=== PATIENT | male | born 1990 ===

== ENCOUNTER 2020-01-24 14:20 | Outpatient (REF) | payer MEDICAID, SELFPAY | END 2020-01-24 14:21 | disposition home or self-care (01) | LOC: HO.LAB 14:20 | PROVIDERS: Visit Provider Internal Medicine | DX: Z20.828 Contact with and (suspected) exposure to other viral communicable diseases (principal) | CPT/HCPCS: C9803; U0003 ==

== ENCOUNTER 2020-02-10 08:32 | Emergency (ER) | payer MEDICAID, SELFPAY ==
[2020-02-10 08:39] VITALS: BP 129/89; PULSE 100; RESP 16; TEMP 36.8; O2SAT 96; BMI 36.9
--- NOTE | 2020-02-10 08:57 | ED_ITS ---
HPI - Fever General Chief Complaint: Upper Respiratory Symptoms Stated Complaint: FEVER Time Seen by Provider: 02/10/20 08:41 Source: patient Mode of arrival: ambulatory Limitations: no limitations History of Present Illness HPI Narrative: 29-year-old male who presents emergency department for evaluation of fever, chills, and cough. The patient states that he got sick yesterday. He states that he developed hot and cold sensations with shaking chills. He checked his temperature yesterday in his T-max was 100.4? F. the patient states that has a cough which is nonproductive. He denied chest pain, shortness of breath or dyspnea on exertion. The patient's [id number] was visiting approximately 2 weeks prior and he tested positive for COVID-19. The patient was tested for COVID-19 on January 24, 2020 and was COVID negative. 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 He states that he was quarantine at home due to his exposure and return to work on , 2 days prior to evaluation. The patient's past medical history is negative. He does not smoke, does not drink alcohol and does not use drugs. MD elicited complaint: fever Onset (ago): day(s) (2) Context: sick contacts ([id number] COVID positive) Exacerbating factors: nothing Relieving factors: nothing Associated symptoms: chills and cough (Nonproductive) Treatments prior to arrival fever: none Related Data Allergies Allergy/AdvReac Type Severity Reaction Status Date / Time animal dander [PET DANDER] Allergy Mild SNEEZING Unverified 11/23/19 19:00 SEASONAL ALLERGIES Allergy Mild RUNNY NOSE Uncoded 11/23/19 19:00 Review of Systems Review of Systems: Yes all other systems are reviewed and are negative Constitutional: Constitutional: Reports as per HPI Eyes: Eyes: Reports as per HPI ENT: Reports as per HPI Cardiovascular: Cardiovascular: Reports as per HPI Respiratory: Respiratory: Reports as per HPI Gastrointestinal: Gastrointestinal: Reports as per HPI Genitourinary: Genitourinary: Reports as per HPI Musculoskeletal: Musculoskeletal: Reports as per HPI Integumentary/Breasts: Skin/Breast: Reports as per HPI Neurologic: Reports as per HPI and Reports Abnormal speech present Psychiatric: Psychiatric: Reports as per HPI Allergic/Immunologic: Allergic/Immunologic: Reports as per HPI [facility] Social History Social History Advance Directives: No Advance Directives Information Provided: No Physical Exam Vital Signs: Vital Signs: Last Vital Signs Temp 98.2 F 02/10/20 08:39 Pulse 100 02/10/20 08:39 Resp 16 02/10/20 08:39 BP 129/89 02/10/20 08:39 Pulse Ox 96 02/10/20 08:39 Body Mass Index 36.9 Const: General: cooperative, no acute distress, alert and awake Orientation/consciousness: oriented to person and oriented to place Limitations: no limitations HENMT: Head: Yes normal to inspection, Yes normocephalic and Yes atraumatic Ears: external ears normal General nose exam: Normal external nose present Face and sinus: Yes normal facial exam Mouth: Normal oral and palatal mucosa present Throat: Yes posterior oropharynx normal Eyes: General: appearance normal, both eyes and all related structures Periorbital: periorbital findings normal Eyelids: Yes eyelids normal Conjunctivae: conjunctivae normal Sclerae: sclerae normal Corneas: corneas normal Pupils: Equal, round and reactive pupils present Direct Ophthalmoscopy: normal light reflex Neck: Neck: Yes normal visual inspection and Yes supple Lymphatic: no lymphadenopathy noted Chest: Chest palpation & inspection: normal inspection of the chest and normal palpation of entire chest wall Resp: Effort & Inspection: normal respiratory effort, abnormal respiratory pattern, no audible wheezes and no respiratory distress Auscultation: clear to auscultation bilaterally, no crackles, no rales, no rhonchi and no wheezes Cardio: Rate: regular rate Rhythm: regular rhythm Heart sounds: S1 normal heart sound present, S2 normal heart sound present and no murmurs GI: Inspection: No distended Palpation (GI): Soft to palpation, nontender, no guarding and No hepatosplenomegaly present Auscultation: normal bowel sounds : General: Yes no CVA tenderness Back/Spine/Pelvis: Back: no CVA tenderness Skin: General skin exam: no rashes or lesions noted Lesions: no lesions Rashes: no rashes Wounds: no wounds Neuro: General: oriented to person and oriented to place Cranial nerves: Yes CN's II-XII intact bilaterally and Yes Equal, round and reactive pupils present Cognition (Neuro): normal cognition Speech: Abnormal speech present Motor exam (neuro): 5/5 motor strength present throughout Extrem: General: Yes normal to inspection, Yes full ROM, Yes no pedal edema and Yes no calf tenderness Psych: Appearance: grossly normal Mental Status: mental status grossly normal Speech and movement: Clear speech present Affect: normal affect Thought process: Normal thought process present Course Course Course Narrative: 29-year-old male who presents emergency department for evaluation fever, chills and a dry nonproductive cough x2 days. The patient had a known COVID-19 exposure but also had a negative COVID-19 test on January 24, 2020. Patient's physical examination revealed normal O2 saturation 96% on room air, he was afebrile here in the emergency department, he did have a slightly elevated pulse of 100 beats per minute with a normal respiratory rate of 16. My impression is that the patient has an upper respiratory tract infection. Given his COVID-19 exposure and given the fact that he is a security controls assessor at the [employer], I will retest the patient for COVID-19 and advised the patient to quarantine at home until he gets the result. I did discuss the treatment of a viral illnesses, COVID-19 and URIs with the patient. He was advised to take Tylenol and ibuprofen and to follow up with his doctor for re-evaluation in 2 days. He is advised to return emergency department if his symptoms get worse or if he develops any new symptoms that are concerning to him. Discharge Plan Discharge Clinical Impression: Suspected COVID-19 virus infection Upper respiratory infection Qualifiers: URI type: unspecified viral URI Qualified Code(s): J06.9 - Acute upper respiratory infection, unspecified Patient Disposition: Home, Self-Care Instructions: Upper Respiratory Infection (ED), COVID-19 (Coronavirus Disease 2019) (ED) Additional Instructions: His symptoms are consistent with a viral infection, upper respiratory tract infection. We did check you for COVID-19. This should come back in 2-4 days in the hospital should contact me with this result. You need to quarantine at home until you know this result. Take ibuprofen 200 mg pills, 3 pills every 6 hours as needed for pain or fever. Take Tylenol 500 mg pills, 2 pills every 4-6 hours as needed for pain or fever. Follow-up with your doctor for re-evaluation in 2 days. Please return to the emergency department if her symptoms get worse or if you develop any new symptoms that are concerning to you. Referrals: [address],[facility] [Primary Care Provider] - 2 days
== END 2020-02-10 09:53 | disposition home or self-care (01) ==
PROVIDERS: Emergency Provider Emergency Medicine Emergency Medical Services
DX: J06.9 Acute upper respiratory infection, unspecified (principal); Z20.828 Contact with and (suspected) exposure to other viral communicable diseases
CPT/HCPCS: 99283; U0003

== ENCOUNTER 2020-02-26 14:10 | Outpatient (REF) | payer MEDICAID, SELFPAY | END 2020-02-26 14:11 | disposition home or self-care (01) | LOC: HO.LAB 14:10 | PROVIDERS: Visit Provider Internal Medicine | DX: Z20.828 Contact with and (suspected) exposure to other viral communicable diseases (principal) | CPT/HCPCS: C9803; U0003 ==

== ENCOUNTER 2020-04-18 07:47 | Outpatient (REF) | payer MEDICAID, SELFPAY ==
--- NOTE | 2020-04-18 | PFT_ITS ---
INDICATIONS: Asthma. SPIROMETRY: The FEV1 to FVC of 86% with an FEV1 of 3.53 L, which is 84% predicted with an FVC of 4.1 L, which is 81% predicted. No significant response to bronchodilators noted. The maximal voluntary ventilation 86% of predicted. LUNG VOLUMES: Total lung capacity 84% of predicted with a residual volume 87% of predicted, and an expiratory reserve volume of 30% predicted likely secondary to an elevated BMI. DIFFUSION CAPACITY: DLCO 105% of predicted. COMPARISONS: None available. INTERPRETATION: No obstructive nor restrictive ventilatory defects identified. No significant response to bronchodilators noted. However, the patient does have some evidence of small airways disease. Lung volumes are low-normal and has a decrease in the expiratory reserve volume secondary to an elevated BMI. Diffusion capacity is within normal limits. If asthma is in the differential, a methacholine challenge may be helpful in assessing for hyperreactive airways. Otherwise, clinical correlation warranted. MD TAMIA Churchill/[facility] / [id number]
== END 2020-04-18 07:48 | disposition home or self-care (01) ==
LOC: HO.RESP 07:47
PROVIDERS: Visit Provider Internal Medicine
DX: J45.31 Mild persistent asthma with (acute) exacerbation (principal)
CPT/HCPCS: 94060; 94727; 94729

== ENCOUNTER 2023-01-27 09:42 | Outpatient (REF) | payer MEDICAID, SELFPAY ==
[2023-01-27 12:19] LABS: Estimated Average Glucose 123 mg/dL; Hemoglobin A1c % 5.9 % (<6.0)
[2023-01-27 12:26] LABS: Anion Gap 12 (12-20); Blood Urea Nitrogen 13 mg/dL (9-16); Calcium 9.8 mg/dL (8.4-10.2); Carbon Dioxide 28 mmol/L (22-29); Chloride 103 mmol/L (96-108); Estimated Glomerular Filt Rate > 60; Glucose Random 96 mg/dL (60-115); Potassium 4.4 mmol/L (3.3-5.1); Sodium 139 mmol/L (135-145)
== END 2023-01-27 09:43 | disposition home or self-care (01) ==
LOC: HO.HHCL 09:42
PROVIDERS: Visit Provider Emergency Medicine
DX: E11.9 Type 2 diabetes mellitus without complications (principal)
CPT/HCPCS: 36415; 80048; 83036

== ENCOUNTER 2023-07-05 08:42 | Emergency (ER) | payer MEDICAID, SELFPAY ==
--- NOTE | ~2023-07-05 | XR_ITS ---
EXAMINATION: XR CHEST CLINICAL INFORMATION: Cough rib pain COMPARISON: Chest radiograph from 11/04/2019 TECHNIQUE: 2 views of the chest were obtained. FINDINGS: No focal consolidation. No pneumothorax. Trachea is midline. Cardiac mediastinal silhouette is not enlarged. No large pleural effusion. Osseous structures are intact. Soft tissues are unremarkable. XR/XR chest 2V IMPRESSION: No acute cardiopulmonary process.
[2023-07-05 08:46] VITALS: BP 149/89; PULSE 99; RESP 18; TEMP 36.6; O2SAT 98; BMI 38.5
--- NOTE | 2023-07-05 08:59 | ED.GENADULT ---
HPI - General Adult General Chief complaint: Upper Respiratory Symptoms Stated complaint: Cough/Rib pain/fever Time Seen by Provider: 07/05/23 08:56 Source: patient Mode of arrival: ambulatory Limitations: no limitations History of Present Illness HPI narrative: Patient is a 33-year-old male with history of asthma presenting to the emergency department with complaint of nonproductive cough, nasal congestion, fevers body aches and sore throat since Wednesday. Son is getting over influenza. States that he has been using his inhalers and albuterol at home. Denies any chest pain or palpitations. Denies any abdominal pain, nausea, vomiting, diarrhea. complaint: Fever, sore throat, cough Onset (ago): day(s) Associated symptoms: cough Treatments prior to arrival: other Related Data Previous Rx's ?Medication ?Instructions ?Recorded oseltamivir 75 mg capsule 75 mg PO BID 5 days #10 caps 07/05/23 Allergies Allergy/AdvReac Type Severity Reaction Status Date / Time animal dander [PET DANDER] Allergy Mild SNEEZING Verified 07/05/23 08:48 SEASONAL ALLERGIES Allergy Mild RUNNY NOSE Uncoded 07/05/23 08:48 Review of Systems Review of Systems: As per HPI. Yes all other systems are reviewed and are negative Constitutional: Constitutional: Reports as per HPI [facility] Social History Social History Advance Directives: No Advance Directives Information Provided: Yes Do you have a plan to hurt others: No Plan Physical Exam ED Vital Signs: Vital Signs - 24 hr 07/05/23 08:46 Temperature 97.9 F Pulse Rate 99 Respiratory Rate 18 Blood Pressure 149/89 H Pulse Oximetry 98 Oxygen Delivery Method Room Air BMI result Body Mass Index 38.5 Vital signs have been reviewed and appear to be correct. Blood pressure elevated. Heart rate normal. Respiratory rate normal. Temperature normal. Oxygen saturation normal. Const General: cooperative, healthy appearing and no acute distress Orientation/consciousness: oriented to person, oriented to place, oriented to time and patient oriented x3 Limitations: no limitations HENMT Head: Yes normocephalic and Yes atraumatic Ears: external ears normal, TM's normal bilaterally and EAC's normal General nose exam: Normal external nose present Face and sinus: Yes face symmetric Mouth: Normal oral and palatal mucosa present, lip normal, tongue normal, oropharynx normal and moist mucous membranes Throat: Yes posterior oropharynx normal, Yes tonsils normal, Yes uvula midline, No peritonsillar mass and No uvular edema Eyes Pupils: Equal, round and reactive pupils present Neck Neck: Yes normal visual inspection, Yes full ROM, Yes no lymphadenopathy and Yes supple Resp Effort & Inspection: normal respiratory effort and able to speak in complete sentences Auscultation: clear to auscultation bilaterally and no wheezes Cardio Rate: regular rate Rhythm: regular rhythm Heart sounds: S1 normal heart sound present and S2 normal heart sound present GI Palpation (GI): Soft to palpation and nontender Auscultation: normoactive bowel sounds General: Yes no CVA tenderness Back/Spine/Pelvis Back: no CVA tenderness Skin General skin exam: elasticity normal and turgor normal Neuro General: oriented to person, oriented to place, oriented to time, patient oriented x3, moves all extremities, no focal motor deficits and CN's II-XI intact bilaterally Cranial nerves: Yes Equal, round and reactive pupils present Cognition (Neuro): normal cognition Extrem General: Yes full ROM, Yes no pedal edema and Yes no calf tenderness Psych Mental Status: mental status grossly normal Affect: normal affect Thought process: Normal thought process present Medical Decision Making Medical Decision Making MDM Narrative: Patient is a 33-year-old male with history of asthma presenting to the emergency department with complaint of nonproductive cough, nasal congestion, fevers body aches and sore throat since Wednesday. On exam patient is awake, A+Ox3, BP mildly elevated, VS otherwise WNL, afebrile, normal neurological exam without focal deficits, physical exam findings as above. Given reported symptoms and physical exam findings, initial differential includes viral illness, covid, flu, RSV, strep pharyngitis. X-ray chest ordered by triage nurse notable for no evidence of pneumonia. My interpretation is in agreement with the radiologist's interpretation. Flu swab positive, COVID and RSV negative. Patient updated on results and all questions answered. Patient is requesting treatment with Tamiflu due to history of asthma and is within 72 hour window, will send prescription to pharmacy. Advised patient he can also medicate with Tylenol and ibuprofen as needed for fever or discomfort. Instructed patient to follow-up with primary care provider. Return precautions discussed at bedside. Patient verbalized understanding of and agreement with plan. Differential Diagnosis Differential Diagnoses: The differential diagnosis associated with the presentation includes As per [facility]. Lab Data [facility] Lab Attestation statement: I reviewed the patient's lab results. As per [facility]. Labs: Lab Results 07/05/23 Range/Units 08:50 Influenza Type A (PCR) NEGATIVE (Negative) Influenza Type B (PCR) POSITIVE A (Negative) RSV RNA Qual (PCR) NEGATIVE (Negative) SARS-CoV-2 RNA (RT-PCR) NEGATIVE (Negative) S. pyogenes GrpA LENNOX Negative (Negative) Independent Interpretation I performed an independent interpretation of an: Plain X-Ray Interpretation: No evidence of pneumonia on chest x-ray. Radiology Impression Discussion of test interpretation with radiology: I have reviewed the radiologist's reading. Radiologist Impression: XR/XR chest 2V IMPRESSION: No acute cardiopulmonary process. Prescription Management I considered prescription management with: Antiviral Discharge Plan Discharge Clinical Impression: Influenza Patient Disposition: Home, Self-Care Instructions: Oseltamivir (By mouth), Influenza (DC), Flu Shot (Vaccine) for Adults (ED) Additional Instructions: You were evaluated in the emergency department today for sore throat, cough. Your flu test was positive. You should isolate at home for another 3 days and continue to wear mask while symptomatic after that. You are being treated with Tamiflu, please take this as prescibed. Your symptoms should resolve over time with rest and fluids. You can take 650 mg Tylenol or 600 mg ibuprofen every 6 hours as needed for fever or pain. Please follow-up with your primary care provider for any ongoing symptoms. Return to the emergency department if you develop worsening pain, fever not controlled with Tylenol and ibuprofen, chest pain, dizziness or lightheadedness, or any other concerning symptoms. Prescriptions: New oseltamivir 75 mg capsule 75 mg PO BID 5 Days Qty: 10 0RF Stand Alone Forms: Work/School Release Print Language: Portuguese
[2023-07-05 09:40] LABS: Influenza A PCR NEGATIVE (Negative); Influenza B PCR POSITIVE (Negative); Resp Syncy Virus RNA Qual PCR NEGATIVE (Negative); SARS COV2 PCR INHOUSE NEGATIVE (Negative)
[2023-07-05 09:42] LABS: IDNOW Serial# 08D9AD1C
[2023-07-05 09:43] LABS: Strep A Nucleic Acid Negative (Negative)
[2023-07-05 10:00] VITALS: BP 117/95; PULSE 102; RESP 18; TEMP 36.6; O2SAT 97
--- NOTE | 2023-07-05 10:40 | PC.NURSE ---
PT CLEARED FOR DISCHARGE, DISCHARGE INSTRUCTIONS REVIEWED W PT. NO QUESTIONS AT THE TIME OF DISCHARGE. STEADY GAIT ON DISCHARGE. VSS.
[2023-07-05 10:43] VITALS: BP 117/95; PULSE 102; RESP 18; TEMP 36.6; O2SAT 97
== END 2023-07-05 10:44 | disposition home or self-care (01) ==
PROVIDERS: Emergency Provider Emergency Medicine
DX: J10.1 Influenza due to other identified influenza virus with other respiratory manifestations (principal); R05.9 Cough, unspecified; R07.81 Pleurodynia; R50.9 Fever, unspecified; M79.10 Myalgia, unspecified site; R09.81 Nasal congestion; Z11.52 Encounter for screening for COVID-19; Z20.822 Contact with and (suspected) exposure to COVID-19
CPT/HCPCS: 0241U; 71046; 87651; 99283; 99284

== ENCOUNTER 2023-07-12 08:23 | Emergency (ER) | payer MEDICAID, SELFPAY ==
--- NOTE | ~2023-07-12 | XR_ITS ---
EXAMINATION: XR CHEST CLINICAL INFORMATION: Shortness of breath COMPARISON: 09/08/2017 and 07/05/2023 TECHNIQUE: 2 views of the chest were obtained. FINDINGS: Lungs are well-inflated. Trachea is midline in position. No interstitial disease, consolidation or mass. The chronic subtle, somewhat linear opacities in the lateral upper lung zones could represent scarring. No pleural effusion or pneumothorax. Cardiac silhouette and pulmonary vessels are normal in size. The mediastinum and andrew have normal contour. The visualized bones and upper abdomen are unremarkable. XR/XR chest 2V IMPRESSION: No acute cardiopulmonary abnormality. No evidence of active pneumonia, pulmonary edema or pleural effusion.
[2023-07-12 08:38] VITALS: BP 138/87; PULSE 80; RESP 18; TEMP 36.7; O2SAT 98; BMI 37.6
[2023-07-12 10:29] LABS: Influenza A PCR NEGATIVE (Negative); Influenza B PCR POSITIVE (Negative); Resp Syncy Virus RNA Qual PCR NEGATIVE (Negative); SARS COV2 PCR INHOUSE NEGATIVE (Negative)
--- NOTE | 2023-07-12 10:30 | ED.GENADULT ---
HPI - General Adult General Chief complaint: Upper Respiratory Symptoms Stated complaint: diff breathing Time Seen by Provider: 07/12/23 09:28 Source: patient Mode of arrival: ambulatory Limitations: no limitations History of Present Illness HPI narrative: Patient is a 33-year-old male with history of asthma recently diagnosed with influenza presenting to the emergency department with complaint of ongoing shortness of breath. Also complains of nonproductive cough. Denies fevers. States that he did complete the full course of Tamiflu as prescribed. Denies any chest pain or palpitations. MD complaint: Shortness of breath Onset (ago): day(s) Associated symptoms: cough Treatments prior to arrival: other Related Data Previous Rx's ?Medication ?Instructions ?Recorded oseltamivir 75 mg capsule 75 mg PO BID 5 days #10 caps 07/05/23 benzonatate 100 mg capsule 100 mg PO TID PRN cough #14 caps 07/12/23 prednisone 20 mg tablet 40 mg (2 x 20 mg) PO DAILY #10 tabs 07/12/23 Allergies Allergy/AdvReac Type Severity Reaction Status Date / Time animal dander [PET DANDER] Allergy Mild SNEEZING Verified 07/12/23 08:40 Review of Systems Review of Systems: As per HPI. Yes all other systems are reviewed and are negative Constitutional: Constitutional: Reports as per HPI [facility] Social History Social History Advance Directives: No Advance Directives Information Provided: No Do you have a plan to hurt others: No Plan Physical Exam ED Vital Signs: Vital Signs - 24 hr 07/12/23 08:38 Temperature 98.0 F Pulse Rate 80 Respiratory Rate 18 Blood Pressure 138/87 Pulse Oximetry 98 Oxygen Delivery Method Room Air BMI result Body Mass Index 37.6 Vital signs have been reviewed and appear to be correct. Blood pressure normal. Heart rate normal. Respiratory rate normal. Temperature normal. Oxygen saturation normal. Const General: cooperative, healthy appearing and no acute distress Orientation/consciousness: oriented to person, oriented to place, oriented to time and patient oriented x3 Limitations: no limitations HENMT Head: Yes normocephalic and Yes atraumatic Ears: external ears normal General nose exam: Normal external nose present Face and sinus: Yes face symmetric Mouth: oropharynx normal and moist mucous membranes Throat: Yes uvula midline Eyes Pupils: Equal, round and reactive pupils present Neck Neck: Yes normal visual inspection and Yes supple Resp Effort & Inspection: normal respiratory effort and able to speak in complete sentences Auscultation: clear to auscultation bilaterally and wheezes expiratory wheezes and upper bilaterally Cardio Rate: regular rate Rhythm: regular rhythm Heart sounds: S1 normal heart sound present and S2 normal heart sound present GI Palpation (GI): Soft to palpation and nontender Auscultation: normoactive bowel sounds General: Yes no CVA tenderness Back/Spine/Pelvis Back: no CVA tenderness Skin General skin exam: elasticity normal and turgor normal Neuro General: oriented to person, oriented to place, oriented to time, patient oriented x3, moves all extremities, no focal motor deficits and CN's II-XI intact bilaterally Cranial nerves: Yes Equal, round and reactive pupils present Cognition (Neuro): normal cognition Extrem General: Yes full ROM, Yes no pedal edema and Yes no calf tenderness Psych Mental Status: mental status grossly normal Affect: normal affect Thought process: Normal thought process present Medical Decision Making Medical Decision Making [facility] Narrative: Patient is a 33-year-old male with history of asthma recently diagnosed with influenza presenting to the emergency department with complaint of ongoing shortness of breath. On exam patient is awake, A+Ox3, VS WNL, afebrile, normal neurological exam without focal deficits, physical exam findings as above. Given reported symptoms and physical exam findings, initial differential includes ashtma exacerbation, bronchitis, pneumonia. X-ray notable for no evidence of pneumonia. My interpretation is in agreement with the radiologist's interpretation. Patient noted to have mild expiratory wheezing bilateral upper lobes. Will treat with short course of steroids and benzonatate. Instructed patient to follow-up with his primary care provider. Return precautions discussed. Patient verbalized understanding of and agreement with plan. Differential Diagnosis Differential Diagnoses: The differential diagnosis associated with the presentation includes As per [facility] Lab Data [facility] Lab Attestation statement: I reviewed the patient's lab results. As per [facility] Labs: Lab Results 07/12/23 Range/Units 09:46 Influenza Type A (PCR) NEGATIVE (Negative) Influenza Type B (PCR) POSITIVE A (Negative) RSV RNA Qual (PCR) NEGATIVE (Negative) SARS-CoV-2 RNA (RT-PCR) NEGATIVE (Negative) Independent Interpretation I performed an independent interpretation of an: Plain X-Ray Interpretation: No evidence of pneumonia Radiology Impression Discussion of test interpretation with radiology: I have reviewed the radiologist's reading. Radiologist Impression: RDER #: [id number] XR/XR chest 2V IMPRESSION: No acute cardiopulmonary abnormality. No evidence of active pneumonia, pulmonary edema or pleural effusion. External Record Review External record reviewed: Inpatient record, Office record and Outpatient record Prescription Management I considered prescription management with: Other Discharge Plan Discharge Clinical Impression: Asthma exacerbation, mild Patient Disposition: Home, Self-Care Instructions: Asthma (DC) Additional Instructions: You were evaluated in the emergency department for ongoing shortness of breath after recently being diagnosed with the flu. The virus caused an exacerbation of your asthma symptoms. You are being treated with a short course of steroids to decrease inflammation and cough medicine which you can use every 8 hours as needed. IT IS IMPORTANT THAT YOU KEEP THIS COUGH MEDICATION OUT OF THE REACH OF CHILDREN. Please follow up with your primary care provider. Return to the emergency department with new or worsening symptoms. Prescriptions: New prednisone 20 mg tablet 40 mg PO DAILY Qty: 10 0RF benzonatate 100 mg capsule 100 mg PO TID PRN (Reason: cough) Qty: 14 0RF No Action oseltamivir 75 mg capsule 75 mg PO BID 5 Days Qty: 10 0RF Stand Alone Forms: Work/School Release Print Language: Uruguayan
[2023-07-12 11:13] VITALS: BP 126/81; PULSE 97; RESP 16; TEMP 36.8; O2SAT 97
== END 2023-07-12 11:14 | disposition home or self-care (01) ==
PROVIDERS: Emergency Provider Emergency Medicine
DX: J45.31 Mild persistent asthma with (acute) exacerbation (principal); R06.02 Shortness of breath; Z03.818 Encounter for observation for suspected exposure to other biological agents ruled out
CPT/HCPCS: 0241U; 71046; 99282; 99283

== ENCOUNTER 2023-09-22 09:51 | Outpatient (REF) | payer MEDICAID, SELFPAY ==
[2023-09-22 11:22] LABS: Hematocrit 48.8 % (42.0-52.0); Hemoglobin 16.7 g/dl (14.0-18.0); Mean Corpuscular HGB Conc 34.2 g/dl (31.0-36.0); Mean Corpuscular Hemoglobin 28.9 pg (27.0-33.0); Mean Corpuscular Volume 84.4 fL (80.0-98.0); Mean Platelet Volume 10.4 fL (9.4-12.4); Platelet Count 367 X10*3/uL (160-400); Red Blood Count 5.78 X10*6/uL (4.60-5.80); Red Cell Distribution Width 13.2 % (11.0-16.0); White Blood Count 6.3 X10*3/uL (4.8-10.8)
[2023-09-22 12:02] LABS: Alanine Aminotransferase 33 U/L (0-40); Albumin Level 4.6 g/dL (3.5-5.0); Alkaline Phosphatase 71 U/L (39-117); Anion Gap 13 (12-20); Aspartate Amino Transferase 17 U/L (5-37); Bilirubin Total 0.4 mg/dL (0.0-1.0); Blood Urea Nitrogen 11 mg/dL (9-16); Calcium 10.4 mg/dL (8.4-10.2); Carbon Dioxide 27 mmol/L (22-29); Chloride 102 mmol/L (96-108); Estimated Glomerular Filt Rate > 60; Glucose Random 127 mg/dL (60-115); Potassium 4.1 mmol/L (3.3-5.1); Sodium 138 mmol/L (135-145); Total Protein 8.4 g/dL (6.5-8.0)
[2023-09-22 12:21] LABS: Hepatitis A Antibody IgM 0.21 Index (0-0.79); ~Hepatitis A Antibody IgM Nonreactive (Nonreactive)
[2023-09-22 12:22] LABS: HBsAGNum1 0.31 S/CO (0.00-0.99); HIV AB/AG Nonreactive (Nonreactive); HIV Num 1 0.09 S/CO (0.00-0.99); Hepatitis B Surface Antigen Negative (Negative); ~HepC Num1 0.14 S/CO (0.00-0.79); ~Hepatitis C Antibody Nonreactive (Nonreactive)
== END 2023-09-22 09:52 | disposition home or self-care (01) ==
LOC: HO.HHCL 09:51
PROVIDERS: Visit Provider Student in an Organized Health Care Education/Training Program
DX: A09 Infectious gastroenteritis and colitis, unspecified (principal); R53.83 Other fatigue
CPT/HCPCS: 80053; 85027; 86709; 86803; 87340; 87389

== ENCOUNTER 2023-12-30 08:59 | Emergency (ER) | payer MEDICAID, SELFPAY ==
--- NOTE | ~2023-12-30 | XR_ITS ---
EXAMINATION: XR CHEST 2 VIEW CLINICAL INFORMATION: Cough COMPARISON: 07/12/2023 TECHNIQUE: PA and lateral views of the chest obtained. FINDINGS: The lungs are clear. There are no pleural effusions. The cardiomediastinal silhouette is normal. XR/XR chest 2V IMPRESSION: No acute cardiopulmonary disease. Electronically signed by: Elie Bartholomew MD 12/30/2023 10:15 AM EDT
[2023-12-30 09:02] VITALS: BP 129/81; PULSE 93; RESP 20; TEMP 36.6; O2SAT 96; BMI 39.9
--- NOTE | 2023-12-30 09:33 | ED.GENADULT ---
HPI - General Adult General Chief complaint: Upper Respiratory Symptoms Stated complaint: Difficulty breathing Time Seen by Provider: 12/30/23 09:32 Source: patient Mode of arrival: ambulatory Limitations: no limitations History of Present Illness ED Provider: Moraima VERA narrative: Patient is a 33-year-old male with history of asthma presenting to the emergency department with complaint of ongoing shortness of breath and cough for the past week. States that he was seen at urgent Care last Wednesday and started on prednisone, symptoms did not improve and he returned to urgent care on Wednesday and was prescribed additional prednisone. Has inhalers at home which he has been using with little relief. Has a nebulizer machine but is out of the ampules of albuterol. Denies fevers. Reports cough has become increasingly productive. Denies ear pain, sore throat, abdominal pain, vomiting or diarrhea. Denies chest pain or palpitations. complaint: Cough, shortness of breath Onset (ago): week(s) Related Data Previous Rx's ?Medication ?Instructions ?Recorded oseltamivir 75 mg capsule 75 mg PO BID 5 days #10 caps 07/05/23 benzonatate 100 mg capsule 100 mg PO TID PRN cough #14 caps 07/12/23 prednisone 20 mg tablet 40 mg (2 x 20 mg) PO DAILY #10 tabs 07/12/23 albuterol sulfate 2.5 mg/0.5 mL 5 mg inhalation QID PRN shortness 12/30/23 solution for nebulization of breath or wheezing #30 ea azithromycin 250 mg tablet See Rx Instructions PO .COMPLEX #6 12/30/23 tabs benzonatate 100 mg capsule 100 mg PO TID PRN cough #20 caps 12/30/23 Allergies Allergy/AdvReac Type Severity Reaction Status Date / Time animal dander [PET DANDER] Allergy Mild SNEEZING Verified 12/30/23 09:04 Review of Systems Review of Systems: As per HPI. Yes all other systems are reviewed and are negative Constitutional: Constitutional: Reports as per HPI [facility] Social History Social History Advance Directives: No Advance Directives Information Provided: Yes Do you have a plan to hurt others: No Plan Physical Exam ED Vital Signs: Vital Signs - 24 hr 12/30/23 09:02 12/30/23 10:04 Temperature 97.9 F Pulse Rate 93 90 Respiratory Rate 20 22 H Blood Pressure 129/81 Pulse Oximetry 96 Oxygen Delivery Method Room Air BMI result Body Mass Index 39.9 Vital signs have been reviewed and appear to be correct. Blood pressure normal. Heart rate normal. Respiratory rate normal. Temperature normal. Oxygen saturation normal. Const General: cooperative, healthy appearing and no acute distress Orientation/consciousness: oriented to person, oriented to place, oriented to time and patient oriented x3 Limitations: no limitations HENMT Head: Yes normocephalic and Yes atraumatic Ears: external ears normal General nose exam: Normal external nose present Face and sinus: Yes face symmetric Mouth: oropharynx normal and moist mucous membranes Throat: Yes uvula midline Eyes Pupils: Equal, round and reactive pupils present Neck Neck: Yes normal visual inspection and Yes supple Resp Effort & Inspection: normal respiratory effort and able to speak in complete sentences Auscultation: wheezes (expiratory>inspiratory wheezing) expiratory wheezes, inspiratory wheezes and throughout Cardio Rate: regular rate Rhythm: regular rhythm Heart sounds: S1 normal heart sound present and S2 normal heart sound present GI Palpation (GI): Soft to palpation and nontender Auscultation: normoactive bowel sounds General: Yes no CVA tenderness Back/Spine/Pelvis Back: no CVA tenderness Skin General skin exam: elasticity normal and turgor normal Neuro General: oriented to person, oriented to place, oriented to time, patient oriented x3, moves all extremities, no focal motor deficits and CN's II-XI intact bilaterally Cranial nerves: Yes Equal, round and reactive pupils present Cognition (Neuro): normal cognition Extrem General: Yes full ROM, Yes no pedal edema and Yes no calf tenderness Psych Mental Status: mental status grossly normal Affect: normal affect Thought process: Normal thought process present Medications Administered Discontinued Medications Generic Name Dose Route Start Last Admin Trade Name Freq PRN Reason Stop Dose Admin Albuterol Sulfate 5 mg 12/30/23 09:59 12/30/23 10:03 Albuterol Sulfate (0.083%) 2.5 Mg/3 Ml Vial.Neb INHALE 12/30/23 10:00 5 mg ONCE ONE Administration Medical Decision Making Medical Decision Making MDM Narrative: Patient is a 33-year-old male with history of asthma presenting to the emergency department with complaint of ongoing shortness of breath and cough for the past week. On exam patient is awake, A+Ox3, VS WNL, afebrile, normal neurological exam without focal deficits, physical exam findings as above. Given reported symptoms and physical exam findings, initial differential includes asthma exacerbation, viral illness, COVID, flu, RSV, bronchitis, pneumonia. Viral serology negative. X-ray chest notable for no evidence of pneumonia. My interpretation is in agreement with the radiologist's interpretation. Symptoms improved with breathing treatment administered in [facility] ED. Given ongoing nature of symptoms not improving with steroids and inhalers alone, will treat for bronchitis with azithromycin, benzonatate for cough, will send prescription for albuterol ampules as well. Follow up with PCP. Return precautions discussed. Patient verbalized understanding of and agreement with plan. Differential Diagnosis Differential Diagnoses: The differential diagnosis associated with the presentation includes As per [facility] Lab Data [facility] Lab Attestation statement: I reviewed the patient's lab results. As per [facility] Labs: Lab Results 12/30/23 Range/Units 09:08 Influenza Type A (PCR) NEGATIVE (Negative) Influenza Type B (PCR) NEGATIVE (Negative) RSV RNA Qual (PCR) NEGATIVE (Negative) SARS-CoV-2 RNA (RT-PCR) NEGATIVE (Negative) Independent Interpretation I performed an independent interpretation of an: Plain X-Ray Interpretation: No evidence of pneumonia on chest xray. Radiology Impression Discussion of test interpretation with radiology: I have reviewed the radiologist's reading. Radiologist Impression: XR/XR chest 2V IMPRESSION: No acute cardiopulmonary disease. External Record Review External record reviewed: Inpatient record, Office record and Outpatient record Prescription Management I considered prescription management with: Antibiotic and Other Discharge Plan Discharge Clinical Impression: Bronchitis, Asthma exacerbation Patient Disposition: Home, Self-Care Instructions: Asthma (DC), Acute Bronchitis (ED), Wheezing (ED) Additional Instructions: You were evaluated in the emergency department today for cough and shortness of breath. You are being treated for bronchitis with an antibiotic, please complete the full course as prescribed. You are being prescribed benzonatate which is a cough medicine you can take every 8 hours as needed, keep this medication out of the reach of children. You are being prescribed albuterol ampules for her nebulizer at home, use as prescribed. Please follow-up with your primary care provider this week. Return to the emergency department if you develop worsening shortness of breath, difficulty breathing, chest pain, fever not improved with Tylenol or ibuprofen, or any other concerning symptoms. Prescriptions: New azithromycin 250 mg tablet See Rx Instructions .ROUTE .COMPLEX Qty: 6 0RF Rx Instructions: For 250 mg dose pack: take 500 mg today (day 1), then 250 mg for 4 days (days 2-5) benzonatate 100 mg capsule 100 mg PO TID PRN (Reason: cough) Qty: 20 0RF albuterol sulfate 2.5 mg/0.5 mL solution for nebulization 5 mg inhalation QID PRN (Reason: shortness of breath or wheezing) Qty: 30 0RF No Action oseltamivir 75 mg capsule 75 mg PO BID 5 Days Qty: 10 0RF prednisone 20 mg tablet 40 mg PO DAILY Qty: 10 0RF benzonatate 100 mg capsule 100 mg PO TID PRN (Reason: cough) Qty: 14 0RF Stand Alone Forms: Work/School Release Print Language: Bengali
[2023-12-30 09:55] LABS: Influenza A PCR NEGATIVE (Negative); Influenza B PCR NEGATIVE (Negative); Resp Syncy Virus RNA Qual PCR NEGATIVE (Negative); SARS COV2 PCR INHOUSE NEGATIVE (Negative)
[2023-12-30] MEDS: Albuterol Sulfate (0.083%) 2.5 MG/3 ML VIAL.NEB 5 MG INHALE (10:03)
[2023-12-30 10:04] VITALS: PULSE 90; RESP 22; O2SAT 95
[2023-12-30 11:11] VITALS: BP 129/81; PULSE 93; RESP 18; TEMP 36.6; O2SAT 96
== END 2023-12-30 11:12 | disposition home or self-care (01) ==
PROVIDERS: Emergency Provider Emergency Medicine; PCP Family Medicine
DX: J45.901 Unspecified asthma with (acute) exacerbation (principal); R06.02 Shortness of breath; R05.9 Cough, unspecified; Z03.818 Encounter for observation for suspected exposure to other biological agents ruled out
CPT/HCPCS: 0241U; 71046; 94640; 99284

== ENCOUNTER 2024-02-01 14:32 | Outpatient (REF) | payer MEDICAID, SELFPAY ==
[2024-02-01 16:21] LABS: Creatinine Urine 99.36 mg/dL; Microalbumin Urine < 5.0 mg/L
[2024-02-01 16:25] LABS: Alanine Aminotransferase 66 U/L (0-40); Albumin Level 4.6 g/dL (3.5-5.0); Alkaline Phosphatase 70 U/L (39-117); Anion Gap 13 (12-20); Aspartate Amino Transferase 36 U/L (5-37); Bilirubin Total 0.4 mg/dL (0.0-1.0); Blood Urea Nitrogen 14 mg/dL (9-16); Calcium 10.1 mg/dL (8.4-10.2); Carbon Dioxide 28 mmol/L (22-29); Chloride 102 mmol/L (96-108); Cholesterol 192 mg/dL (<200); Estimated Glomerular Filt Rate > 60; Glucose Random 92 mg/dL (60-115); HDL Cholesterol 35 mg/dL (>40); LDL Cholesterol Calculated 127 mg/dL (<100); Potassium 3.6 mmol/L (3.3-5.1); Sodium 139 mmol/L (135-145); Total Protein 7.5 g/dL (6.5-8.0); Triglycerides 153 mg/dL (<150)
[2024-02-01 16:39] LABS: TSH reflex Free T4 1.39 uIU/mL (0.32-4.0)
[2024-02-01 18:41] LABS: Reflex LDLD? No
[2024-02-02 08:11] LABS: HBS Num1 37.12 mIU/mL (0-7.99); HBc Num1 0.09 S/CO (0.00-0.79); Hepatitis B Core Antibody Nonreactive (Nonreactive); ~Hepatitis B Surface Antibody REACTIVE (Nonreactive)
[2024-02-02 08:12] LABS: Hepatitis A Antibody IgG Nonreactive (Nonreactive); ~Hepatitis A Antibody IgG 0.26 S/CO (0.00-0.99)
[2024-02-04 13:48] LABS: Class Alternaria alternata 3; Class Aspergillus fumigatus 2; Class Bermuda Grass 1; Class Birch 4; Class Cat Dander 4; Class Cladosporium herbarum 0/1; Class Cockroach 2; Class Common Ragweed 2; Class Cottonwood 0/1; Class Derm. pterony 3; Class Dermatophagoides farinae 3; Class Dog Dander 3; Class Elm 1; Class Maple Box Elder 2; Class Mountain Cedar 1; Class Mouse Urine Protein 3; Class Mugwort 2; Class Oak 3; Class Penicillium crysogenum 2; Class Rough Pigweed 1; Class Sheep Sorrel 1; Class Sycamore 1; Class Timothy Grass 1; Class Walnut Tree 0/1; Class White Ash 0/1; Class White Mulberry 0/1; D001 IgE D pteronyssinus 9.56 kU/L; E005 - IgE Dog Dander 3.78 kU/L; E072-IgE Mouse Urine 4.47 kU/L; G006 - IgE Timothy Grass 0.39 kU/L; I006-IgE Cockroach, German 1.89 kU/L; Immunoglobulin E 394 kU/L (<OR=114); M001 IgE Penicillium chrysogen 0.72 kU/L; M002 - IgE Cladosporium herbar 0.26 kU/L; M003 - IgE Aspergillus fumigat 1.38 kU/L; M006 - IgE Alternaria alternat 8.97 kU/L; T001 IgE Maple/Box Elder 1.36 kU/L; T006 - IgE Cedar, Mountain 0.58 kU/L; T008 IgE Elm, American 0.66 kU/L; T010 - IgE Walnut 0.28 kU/L; T011 - IgE Maple Leaf Sycamore 0.65 kU/L; T014 - IgE Cottonwood 0.31 kU/L; W001 - IgE Ragweed, Short 2.94 kU/L; W006 - IgE Mugwort 0.91 kU/L; W014 IgE Pigweed, Common 0.38 kU/L
== END 2024-02-01 14:33 | disposition home or self-care (01) ==
LOC: HO.LAB 14:32
PROVIDERS: PCP Family Medicine; Referring Provider Family Medicine; Visit Provider Internal Medicine Pulmonary Disease
DX: J45.909 Unspecified asthma, uncomplicated (principal); Z91.09 Other allergy status, other than to drugs and biological substances; E11.9 Type 2 diabetes mellitus without complications; Z01.84 Encounter for antibody response examination; R03.0 Elevated blood-pressure reading, without diagnosis of hypertension
CPT/HCPCS: 36415; 80053; 80061; 82043; 82570; 82785; 84443; 86003; 86704; 86706; 86708; 99202

== ENCOUNTER 2024-02-01 14:32 | Outpatient (AMB) | payer MEDICAID, SELFPAY ==
[2024-02-01 14:34] VITALS: BP 118/72; PULSE 88; O2SAT 98; BMI 40.6
--- NOTE | 2024-02-01 14:34 | A.OFFVIS_ITS ---
Vital Signs 02/01/24 14:34 Height 5 ft 7 in Weight 259 lb 0.69 oz BMI 40.6 BP 118/72 Blood Pressure Location Rt brachial Position Sitting Pulse 88 Pulse Source Doppler Pulse Oximetry (%) 98 Oxygen Delivery Method Room Air Intake Visit Reasons: Asthma Allergies animal dander [PET DANDER] Allergy (Mild, Verified 02/01/24 14:39) SNEEZING HPI HPI Asthma: Details: 33-year-old gentleman, with underlying history of asthma since teenagehood previously controlled on as needed albuterol MDI, with recent hospitalization for an asthma exacerbation, now finished prednisone taper and started on Advair 115 and Singulair with reasonable baseline control. Patient does have underlying history of environmental allergies. He does have dogs. Patient is employed without exposure to industrial dusts. He does have family history of asthma in 1 of his brothers and several maternal uncles/aunts. [facility] Social History (Updated 02/01/24 @ 14:40 by KYUNG Foy) Patient Tobacco Use Status: Never used Tobacco Review of Systems Card Denies dyspnea on exertion Resp Denies chest congestion, Denies cough, Denies excessive phlegm production, Denies dyspnea on exertion and Denies wheezing Aller/Immun Denies wheezing Physical Exam Vital Signs: Last Vital Signs Pulse 88 02/01/24 14:34 BP 118/72 02/01/24 14:34 Pulse Ox 98 02/01/24 14:34 Oxygen Delivery Method Room Air 02/01/24 14:34 BMI result Body Mass Index 40.6 Const General: no acute distress and alert Nutritional Appearance: obese Orientation/consciousness: Other orientation findings ( oriented) HEENT Head: Yes atraumatic Eyes General: appearance normal, both eyes and all related structures Sclerae: sclerae normal EOM: EOMs intact bilaterally Neck Neck: Yes supple Lymphatic: no lymphadenopathy noted Resp Effort & Inspection: normal respiratory effort and no use of accessory muscles Auscultation: clear to auscultation bilaterally Cardio Rate: regular rate Rhythm: regular rhythm Heart sounds: no gallops, no murmurs and no rubs Skin General skin exam: other ( warm) Extrem General: No clubbing, No cyanosis and No edema Assessment & Plan Assessment & Plan (1) Asthma: Code(s): J45.909 - Unspecified asthma, uncomplicated Category: Medical Plan: Underlying asthma of unclear severity. Will obtain full PFT. Continue baseline regimen of Advair and albuterol MDI. (2) Environmental allergies: Code(s): Z91.09 - Other allergy status, other than to drugs and biological substances Category: Medical Plan: Will check IgE level, CBC with differential, and RAST panel for further evaluation. Continue Singulair. Orders: Orders Resp Allergy Profile Region I Today Z91.09 - Other allergy status, other than to drugs and biological substances PFT pulmonary function test Today J45.909 - Unspecified asthma, uncomplicated Coding Level of Care Code New Pt Level 4 (06085) Diagnoses Asthma J45.909 Environmental allergies Z91.09
== END 2024-02-01 15:12 | disposition home or self-care (01) ==
PROVIDERS: PCP Family Medicine; Referring Provider Family Medicine; Visit Provider Internal Medicine Pulmonary Disease
DX: J45.909 Unspecified asthma, uncomplicated (principal); Z91.09 Other allergy status, other than to drugs and biological substances
CPT/HCPCS: 99204

== ENCOUNTER 2024-02-19 14:00 | Outpatient (REF) | payer MEDICAID, SELFPAY ==
[2024-02-19 10:04] VITALS: PULSE 97; O2SAT 96
--- NOTE | 2024-02-19 13:30 | PFT_ITS ---
Indication: Asthma Spirometry [FEV1 to FVC 81%; FEV1 3.35 L; FVC 4.14 L. No significant response to bronchodilators noted. Maximum voluntary ventilation 100% predicted.] Lung Volumes [Total lung capacity 78% predicted; expiratory reserve volume 34% predicted] Diffusion Capacity [DLCO 95% predicted] Comparisons [None] Interpretation [No obstructive ventilatory defects. No significant response to bronchodilators noted. Normal maximum voluntary ventilation. The patient does have a restrictive ventilatory defect consistent mild restrictive lung disease. In part due to elevated BMI with a significant decrease in the expiratory reserve volume. Diffusing capacity is within normal limits. If asthma is in no differential methacholine challenge may be helpful in assessing for hyperreactive airways. Clinical correlation warranted.] MTDD
== END 2024-02-19 14:01 | disposition home or self-care (01) ==
LOC: HO.RESP 14:00
PROVIDERS: PCP Family Medicine; Visit Provider Internal Medicine Pulmonary Disease
DX: J45.909 Unspecified asthma, uncomplicated (principal)
CPT/HCPCS: 94010; 94640; 94727; 94729

== ENCOUNTER 2024-02-24 15:15 | Outpatient (AMB) | payer MEDICAID, SELFPAY ==
[2024-02-24 15:17] VITALS: BP 118/77; PULSE 102; O2SAT 96; BMI 40.9
--- NOTE | 2024-02-24 15:17 | A.OFFVIS_ITS ---
Vital Signs 02/24/24 15:17 Height 5 ft 7 in Weight 261 lb 3.964 oz BMI 40.9 BP 118/77 Blood Pressure Location Rt brachial Position Sitting Pulse 102 H Pulse Source Doppler Pulse Oximetry (%) 96 Oxygen Delivery Method Room Air Intake Visit Reasons: Asthma/PFT Follow Up Allergies animal dander [PET DANDER] Allergy (Mild, Verified 02/01/24 14:39) SNEEZING HPI HPI Asthma/PFT Follow Up: Details: 33-year-old gentleman, with underlying history of asthma since teenagehood previously controlled on as needed albuterol MDI, with recent hospitalization for an asthma exacerbation, now finished prednisone taper and started on Advair 115 and Singulair with reasonable baseline control. Patient does have underlying history of environmental allergies. He does have dogs. Patient is employed without exposure to industrial dusts. He does have family history of asthma in 1 of his brothers and several maternal uncles/aunts. At the last office visit patient has completed his pulmonary function test and immunologic workup showed significant allergic component to his symptoms. He has been approved for Xolair, however this time does not want to start it yet as his symptoms are reasonably well controlled on Advair, Singulair, and albuterol MDI. [facility] Social History (Updated 02/01/24 @ 14:40 by Amina Mejia Yoseph) Patient Tobacco Use Status: Never used Tobacco Review of Systems Const Denies daytime sleepiness, Denies excessive sweating, Denies fatigue, Denies fever(s), Denies lethargy, Denies malaise, Denies night sweats, Denies snoring and Denies weight loss Eyes Denies blurry vision and Denies itchy eyes ENT Denies nasal congestion, Denies post nasal drip, Denies sinus pain, Denies sinus pressure and Denies other ( Thrush) Card Denies chest pain, Denies pedal edema, Denies dyspnea, Denies orthopnea and Denies paroxysmal nocturnal dyspnea Resp Denies cough, Denies hemoptysis, Denies excessive phlegm production, Denies dyspnea, Denies snoring and Denies wheezing GI Denies abdominal pain and Denies heartburn Musc Denies myalgias, Denies arthralgias and Denies joint swelling Skin/Breast Denies rash Neuro Denies memory loss and Denies seizure-like activity Psych Denies abnormal sleep pattern, Denies anxiety and Denies memory loss Endo Denies excessive sweating, Denies fatigue and Denies heat intolerance Luiz/Lymph Denies easy bruising Aller/Immun Denies itchy eyes, Denies seasonal rhinorrhea and Denies wheezing Physical Exam Vital Signs: Last Vital Signs Pulse 102 H 02/24/24 15:17 BP 118/77 02/24/24 15:17 Pulse Ox 96 02/24/24 15:17 Oxygen Delivery Method Room Air 02/24/24 15:17 BMI result Body Mass Index 40.9 Const General: no acute distress and alert Nutritional Appearance: not obese Orientation/consciousness: Other orientation findings ( oriented) HEENT Head: Yes atraumatic Eyes General: appearance normal, both eyes and all related structures Sclerae: sclerae normal EOM: EOMs intact bilaterally Neck Neck: Yes supple Lymphatic: no lymphadenopathy noted Resp Effort & Inspection: normal respiratory effort and no use of accessory muscles Auscultation: clear to auscultation bilaterally Cardio Rate: regular rate Rhythm: regular rhythm Heart sounds: no gallops, no murmurs and no rubs Skin General skin exam: other ( warm) Extrem General: No clubbing, No cyanosis and No edema Assessment & Plan Assessment & Plan (1) Severe persistent asthma: Code(s): J45.50 - Severe persistent asthma, uncomplicated Category: Medical Plan: Approved for Xolair, but at this time wants to hold off on it. Symptoms reasonably well controlled on Advair, albuterol, and Singulair. Continue current regimen. (2) Environmental allergies: Code(s): Z91.09 - Other allergy status, other than to drugs and biological substances Category: Medical Plan: Results of immunologic workup reviewed, patient does have significant allergic component to his symptoms. If fails to be controlled on her corticosteroid, will reconsider Xolair. Coding Level of Care Code Est Pt Level 4 (14253) Diagnoses Severe persistent asthma J45.50 Environmental allergies Z91.09
== END 2024-02-24 15:28 | disposition home or self-care (01) ==
PROVIDERS: PCP Family Medicine; Visit Provider Internal Medicine Pulmonary Disease
DX: J45.50 Severe persistent asthma, uncomplicated (principal); Z91.09 Other allergy status, other than to drugs and biological substances
CPT/HCPCS: 99214

== ENCOUNTER → 2024-02-24 15:15 | Outpatient (BNVA) | payer MEDICAID, SELFPAY | PROVIDERS: PCP Family Medicine; Visit Provider Internal Medicine Pulmonary Disease | DX: J45.50 Severe persistent asthma, uncomplicated (principal); Z91.09 Other allergy status, other than to drugs and biological substances | CPT/HCPCS: 99212 ==

== ENCOUNTER 2024-03-13 08:30 | Outpatient (REF) | payer MEDICAID, SELFPAY ==
--- NOTE | ~2024-03-13 | US_ITS ---
EXAMINATION: US COMPLETE ABDOMEN WITH LIVER ELASTOGRAPHY CLINICAL INFORMATION: Transaminitis. Likely MASLD. COMPARISON: None available. TECHNIQUE: Real-time imaging of the abdominal viscera. Noninvasive ultrasound liver fibrosis assessment is performed using Wale ElastPQ point quantification shear wave elastography (pSWE) with a C5-2 MHz transducer. Multiple elastography samples are obtained. FINDINGS: PANCREAS: The visualized pancreatic head and body are normal in appearance. The remainder of the pancreas is obscured from visualization by the overlying bowel gas. ABDOMINAL AORTA: No aortic aneurysm is seen. INFERIOR VENA CAVA: Visualized portions are normal. LIVER: The liver demonstrates normal size, contour and mild diffuse increased echogenicity. No focal lesion or intrahepatic biliary duct dilatation. The right lobe measures 15.2 cm in length. The left lobe measures 13.8 cm in length. Portal flow is hepatopedal Shear wave liver elastography median stiffness is 1.5 m/s (reference: normal median stiffness is 1.3 m/s or less). IQR/median stiffness to assess sampling precision is 0.15 (reference: good quality data set is IQR/median stiffness of 0.15 or less). GALLBLADDER: The gallbladder is physiologically distended without evidence of stones, sludge, polyps, wall thickening or pericholecystic fluid. COMMON BILE DUCT: Normal in caliber measuring 0.3 cm in diameter. RIGHT KIDNEY: No hydronephrosis. No renal calculi or focal parenchymal lesions. The kidney measures 10.9 cm in maximum dimension. There is anechoic cyst upper pole measuring 1.9 x 1.9 x 1.2 cm LEFT KIDNEY: No hydronephrosis. No renal calculi or focal parenchymal lesions. The kidney measures 11.1 cm in maximum dimension. SPLEEN: Unremarkable. The spleen measures 11.3 cm in maximum dimension. FREE FLUID: None seen. US/US abdomen comp w elastography IMPRESSION: 1. Diffusely echogenic liver without focal lesion. Rest of the abdominal ultrasound is unremarkable. 2. Liver elastography median liver stiffness is 1.5 suggestive of cACLD. REFERENCE: Society of Radiologists in Ultrasound Liver Stiffness Thresholds (2019): LIVER STIFFNESS THRESHOLDS: *Liver Stiffness equal or less than 1.3 m/s: High probability of being normal. *Liver Stiffness less than 1.7 m/s: In the absence of other known clinical signs, rules out compensated advanced chronic liver disease. *Liver Stiffness 1.7-2.1 m/s: Suggestive of compensated advanced chronic liver disease but need further test for confirmation. *Liver Stiffness over 2.1 m/s: Rules in compensated advanced chronic liver disease. *Liver Stiffness over 2.4 m/s: Suggestive of clinically significant portal hypertension. QUALITY OF DATA SET: *IQR/Median value equal or less than 0.15 implies a quality data set. *IQR/Median value over 0.15 implies a poor quality data set. SIGNIFICANT CHANGE FROM PRIOR EXAM: Significant change if liver stiffness measurement is 10% or greater from prior exam. OTHER CONSIDERATIONS: The stage of liver fibrosis may be overestimated in the setting of acute hepatitis, liver inflammation, elevated liver function tests, hepatic vascular congestion, obstructive cholestasis, non-fasting state, and infiltrative diseases such as amyloidosis and lymphoma. In some patients with NAFLD, the liver stiffness thresholds for compensated advanced chronic liver disease may be lower. In causes other than viral hepatitis and NAFLD, liver stiffness thresholds are not well established. Electronically signed by: Tanvir West MD 03/27/2024 09:12 AM [facility]
== END 2024-03-13 08:31 | disposition home or self-care (01) ==
LOC: HO.US 08:30
PROVIDERS: PCP Family Medicine; Visit Provider Family Medicine
DX: K76.0 Fatty (change of) liver, not elsewhere classified (principal)
CPT/HCPCS: 76700; 76981

== ENCOUNTER → 2024-03-13 08:33 | Outpatient (BNV) | payer MEDICAID, SELFPAY | PROVIDERS: PCP Family Medicine; Visit Provider Radiology Diagnostic Radiology | DX: K76.89 Other specified diseases of liver (principal) | CPT/HCPCS: 76700 ==

== ENCOUNTER 2024-03-21 06:10 | Outpatient (REF) | payer MEDICAID, SELFPAY ==
--- NOTE | 2024-03-21 | EMG_ITS ---
Left median and ulnar motor and sensory studies were performed. Left radial sensory and median and lateral antecubital brachial sensory studies were performed and paraspinal muscles were tested with a needle. IMPRESSION: This is an unremarkable study with no significant abnormality noted. MD HARINDER Boswell/[facility] / [id number]
== END 2024-03-21 06:11 | disposition home or self-care (01) ==
LOC: HO.NEURO 06:10
PROVIDERS: PCP Family Medicine; Visit Provider Family Medicine
DX: R20.2 Paresthesia of skin (principal)
CPT/HCPCS: 95886; 95910

== ENCOUNTER 2024-10-21 07:55 | Emergency (ER) | payer MEDICAID, SELFPAY ==
--- NOTE | ~2024-10-21 | XR_ITS ---
CLINICAL HISTORY: cough 2 view chest x-ray Comparison: CR/SR - XR CHEST 2 VIEWS - 12/30/23 09:17 EDT Findings: No consolidation or effusion. Heart size is normal. No acute fracture. IMPRESSION: 1. No acute findings. This document has been electronically signed by: Laurent Bradshaw MD on 10/21/2024 09:10:08
[2024-10-21 07:57] VITALS: BP 140/95; PULSE 92; RESP 18; TEMP 36.7; O2SAT 95; BMI 40.4
[2024-10-21 08:05] VITALS: O2SAT 96
--- NOTE | 2024-10-21 08:06 | PC.NURSE ---
LS CTA throughout; pt reports upper airway feels tight ; +hx of asthma; afebrile; speaking full sentences; congested sinuses noted; SARS and strep A swab results pending
--- NOTE | 2024-10-21 08:16 | ED_ITS ---
HPI - General Adult General Chief complaint: Upper Respiratory Symptoms Stated complaint: diff breathing Time Seen by Provider: 10/21/24 08:05 Source: patient Mode of arrival: ambulatory Limitations: no limitations History of Present Illness ED Provider: Gail Schmidt PA-C HPI narrative: Patient is a 34 year old assigned male at with a past medical history of asthma presenting with increasing cough, congestion, and shortness of breath for the past 3 days. He says his sputum is clear and yellow/green. He describes pain in his ribs after coughing or sneezing fits. He took robutussin yesterday to try to release some mucus. He has used his inhaler and nebulizer with some relief. Patient states that he is now out of his nebulizer medication. He also endorses sinus pressure under his eyes and in his forehead. He endorses an episode of diarrhea on Wednesday but he attributes that to his food the night prior. He denies fevers, lightheadedness, chest pain at rest, nausea, vomiting, dysuria. 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 Onset (ago): day(s) (3) Related Data Home Medications ?Medication ?Instructions ?Recorded ?Confirmed albuterol sulfate 90 mcg/actuation 2 puff inhalation Q 6H PRN wheezing 02/01/24 aerosol inhaler (Ventolin HFA) fluticasone propionate 115 inhalation 02/01/24 mcg-salmeterol 21 mcg/actuation HFA inhaler (Advair HFA) loratadine 10 mg tablet 10 mg PO DAILY 02/01/24 montelukast 10 mg tablet 10 mg PO DAILY 02/01/24 Previous Rx's ?Medication ?Instructions ?Recorded oseltamivir 75 mg capsule 75 mg PO BID 5 days #10 caps 07/05/23 benzonatate 100 mg capsule 100 mg PO TID PRN cough #14 caps 07/12/23 prednisone 20 mg tablet 40 mg (2 x 20 mg) PO DAILY # 10 tabs 07/12/23 albuterol sulfate 2.5 mg/0.5 mL 5 mg inhalation QID ME N shortness 12/30/23 solution for nebulization of breath or wheezing #30 ea azithromycin 250 mg tablet See Rx Instructions PO .COM PLEX #6 12/30/23 tabs benzonatate 100 mg capsule 100 mg PO TID PRN cough #20 caps 10/24/24 ipratropium 0.5 mg-albuterol 3 mg 3 ml inhalation Q20M PRN wheezing 10/21/24 (2.5 mg base)/3 mL nebulization #90 mL soln prednisone 50 mg tablet 50 mg PO DAILY Asthma exacer bation 10/21/24 5 days #5 tabs Allergies Allergy/AdvReac Type Severity Reaction Status Date / Time animal dander (PET DANDER) Allergy Mild SNEEZING Verified 10/21/24 07:58 Review of Systems Constitutional: Constitutional: Reports no additional constitutional complaints, Denies fever(s) and Denies night sweats Eyes: Eyes: Reports no additional eye complaints and Denies eye pain ENT: Denies dizziness Cardiovascular: Cardiovascular: Reports no additional cardiovascular complaints, Denies lightheadedness, Denies Loss of Consciousness and Reports dyspnea Respiratory: Respiratory: Reports as per HPI, Reports chest congestion, Reports cough, Reports dyspnea and Reports wheezing Gastrointestinal: Gastrointestinal: Reports no additional gastrointestinal complaints and Denies abdominal pain Genitourinary: Genitourinary: Reports no additional male genitourinary complaints, Denies oliguria and Denies dysuria Musculoskeletal: Musculoskeletal: Reports no additional musculoskeletal complaints and Reports other (muscle fatigue) Neurologic: Denies dizziness Psychiatric: Psychiatric: Reports no additional psychiatric complaints Endocrine: Endocrine: Reports no additional endocrine complaints Hematologic/Lymphatic: Hematologic/Lymphatic: Reports no additional hematologic/lymphatic complaints Allergic/Immunologic: Allergic/Immunologic: Reports no additional allergic/immunologic complaints and Reports wheezing PMFSH Past Medical History Attestation statement: The following information was validated with the patient. Source: old records reviewed and nursing notes reviewed Social History Social History Patient Tobacco Use Status: Never used Tobacco Smoked in Last 30 Days: No Use of substances other than those prescribed or required for medical reasons: No Advance Directives: No Advance Directives Information Provided: No Physical Exam ED Vital Signs: Vital Signs - 24 hr 10/21/24 07:57 10/21/24 08:05 10/21/24 09:00 Temperature 98.1 F Pulse Rate 92 66 Respiratory Rate 18 18 Blood Pressure 140/95 H Pulse Oximetry 95 96 Oxygen Delivery Method Room Air Room Air 10/21/24 10:31 10/21/24 10:32 Temperature 97.3 F 97.3 F Pulse Rate 70 70 Respiratory Rate 18 18 Blood Pressure 132/75 132/75 Pulse Oximetry 98 98 Oxygen Delivery Method Room Air Room Air BMI result Body Mass Index 40.4 Const General: cooperative, no acute distress, alert and awake Nutritional Appearance: well nourished Orientation/consciousness: patient oriented x3 HENMT Head: Yes normal to inspection and Yes atraumatic Ears: hearing grossly normal bilaterally and external ears normal General nose exam: Normal external nose present, no nasal discharge noted and no epistaxis Face and sinus: Yes normal facial exam, No abrasion and No laceration Mouth: Normal oral and palatal mucosa present, no drooling and no muffled voice Eyes General: appearance normal, both eyes and all related structures Periorbital: periorbital findings normal Eyelids: Yes eyelids normal Conjunctivae: conjunctivae normal Pupils: Equal, round and reactive pupils present EOM: EOMs intact bilaterally Neck Neck: Yes normal visual inspection and Yes full ROM Resp Effort & Inspection: normal respiratory effort and able to speak in complete sentences Auscultation: wheezes inspiratory wheezes (resolved upon coughing) Neuro General: patient oriented x3, moves all extremities and CN's II-XI intact bilaterally Cranial nerves: Yes Equal, round and reactive pupils present Cognition (Neuro): normal cognition Extrem General: Yes normal to inspection, Yes full ROM and Yes capillary refill normal Psych Appearance: grossly normal Mental Status: mental status grossly normal Affect: normal affect Attitude: cooperative Thought process: Normal thought process present Thought content: Normal thought content present Insight: Good insight present (Psych) Medications Administered Discontinued Medications Generic Name Dose Route Start Last Admin Trade Name Tuq PRN Reason Stop Dose Admin Albuterol Sulfate 2.5 mg/ 0 mg 10/21/24 08:51 10/21/24 09:02 Albuterol/Ipratropium 3 ml INHALE 10/21/24 08:52 1 dose ONCE ONE Administration Methylprednisolone Sodium Succinate 60 mg 10/21/24 08:19 10/21/24 08:38 Methylprednisolone Sod Succ 125 Mg/2 Ml Vial IM 10/21/24 08:20 60 mg ONCE ONE Administration Medical Decision Making Medical Decision Making [facility] Narrative: Patient is a 34 year old assigned male at with a history of asthma presenting to the emergency department today with cough, congestion, and wheezing. Patient's physical exam was as noted in the physical exam portion of this note and most consistent with an asthma exacerbation. Patient's chest x-ray showed no acute process. I explained my physical exam findings as well as all test results to the patient. I answered all questions asked by the patient. Patient received solu-medrol and a breathing treatment which, upon re- evaluation, he stated it helped his symptoms some. I stressed the importance of the patient taking his medication as directed (either prescribed or as the over the counter packaging recommends). I stressed the importance of the patient following up with his primary care provider. I stressed the importance of the patient returning to the emergency department immediately if his symptoms were to worsen or if he were to develop any dizziness, shortness of breath, difficulty breathing, chest pain, blurry vision, loss of vision, nausea, vomiting, abdominal pain, fever, chills, back pain, or any other complaints. Patient verbalized agreement and understanding with this treatment plan and discharge. Differential Diagnosis Differential Diagnoses: The differential diagnosis associated with the presentation includes Cough Wheezing Asthma exacerbation COVID-19 Influenza RSV Admission/Observation Consideration of admission/observation: Escalation of care including admission/observation considered Patient would have been admitted to the hospital had his work up had any findings where hospital admission was appropriate and his clinical presentation warranted hospital admission. Lab Data MDM Lab Attestation statement: I reviewed the patient's lab results. My interpretation of these studies and their corresponding values is that they are grossly normal. Labs: Lab Results 10/21/24 10/21/24 Range/Units 08:09 09:24 Influenza Type A (PCR) NEGATIVE (Negative) Influenza Type B (PCR) NEGATIVE (Negative) RSV RNA Qual (PCR) NEGATIVE (Negative) SARS-CoV-2 RNA (RT-PCR) NEGATIVE (Negative) S. pyogenes GrpA LENNOX Negative (Negative) Independent Interpretation I performed an independent interpretation of an: Plain X-Ray Interpretation: My interpretation is in agreement with the radiologist's impression of this imaging study. CLINICAL HISTORY: cough 2 view chest x-ray Comparison: CR/SR - XR CHEST 2 VIEWS - 12/30/23 09:17 EDT Findings: No consolidation or effusion. Heart size is normal. No acute fracture. IMPRESSION: 1. No acute findings. This document has been electronically signed by: Laurent Bradshaw MD on 10/21/2024 09:10:08 Dictated By: Laurent Bradshaw MD Signed By: Electronically signed by Laurent Bradshaw MD 10/21/24 0911 Radiology Impression Discussion of test interpretation with radiology: I have reviewed the radiologist's reading. Critical Care Time Critical Care Time Critical Care Time: Yes Total Critical Care Time: 33 Attestation: I spent 33 minutes of Critical Care Time with this patient. This does not include time spent on separately reported billable procedures. Discharge Plan Discharge Clinical Impression: Asthma exacerbation Patient Disposition: Home, Self-Care Instructions: Asthma (DC) Additional Instructions: Your work up today was reassuring this is an asthma exacerbation and not some other emergent cause. Please take your medication as prescribed. IF you are prescribed home medications and/or you are taking over the counter medications at home - it is very important you continue to do so as prescribed / directed unless told otherwise. Follow up with your primary care provider. Return to the emergency department immediately if your symptoms worsen or if you develop any numbness, tingling, dizziness, shortness of breath, difficulty breathing, chest pain, blurry vision, loss of vision, nausea, vomiting, abdominal pain, fever, chills, back pain, or any other complaints. Please see the information below about our Patient Portal. If you are not yet enrolled in the [facility] Patient Portal, you will receive an enrollment email invitation following your visit to any [facility] setting. You may also self-enroll in the Patient Portal by visiting our website: [email or web address] The following information is required to access the Patient Portal: - Your [facility] Medical Record Number - Your personal home email address (must match what is in your electronic medical record, Registration staff can assist with this) - Name - Date of Capabilities of the Patient Portal: - Message some providers - View upcoming appointments - Access your health summary, medical history, and visit history - View current conditions and allergies - View procedure and lab results - View your medications, including guidelines, side effects, and precautions - Complete pre-appointment questionnaires requested by your provider - Ready summary reports of your office visits and procedures To access the Patient Portal Mobile Mickey, follow these directions: - Search [employer] in the Mickey Store or Pansieve Store - Download the Mickey - Search for [facility] - Enter your login/password Prescriptions: New prednisone 50 mg tablet 50 mg PO DAILY 5 Days Qty: 5 0RF ipratropium-albuterol 0.5 mg-3 mg(2.5 mg base)/3 mL solution for nebulization 3 ml inhalation Q20M PRN (Reason: wheezing) Qty: 90 0RF No Action oseltamivir 75 mg capsule 75 mg PO BID 5 Days Qty: 10 0RF prednisone 20 mg tablet 40 mg PO DAILY Qty: 10 0RF benzonatate 100 mg capsule 100 mg PO TID PRN (Reason: cough) Qty: 14 0RF azithromycin 250 mg tablet See Rx Instructions .ROUTE .COMPLEX Qty: 6 0RF Rx Instructions: For 250 mg dose pack: take 500 mg today (day 1), then 250 mg for 4 days (days 2-5) benzonatate 100 mg capsule 100 mg PO TID PRN (Reason: cough) Qty: 20 0RF albuterol sulfate 2.5 mg/0.5 mL solution for nebulization 5 mg inhalation QID PRN (Reason: shortness of breath or wheezing) Qty: 30 0RF fluticasone propion-salmeterol [Advair HFA] 115-21 mcg/actuation HFA aerosol inhaler inhalation albuterol sulfate [Ventolin HFA] 90 mcg/actuation HFA aerosol inhaler 2 puff inhalation Q6H PRN (Reason: wheezing) loratadine 10 mg tablet 10 mg PO DAILY montelukast 10 mg tablet 10 mg PO DAILY Referrals: Iram Kern MD [Primary Care Provider, Internal Medicine] Stand Alone Forms: Work/School Release Interventions: ED Discharge Assessment Last Done: 10/21/24 10:32 Print Language: Persian
--- OUTSIDE RECORDS SUMMARY | 2024-10-21 08:52 | XMS_ITS ---
Author Name [facility] Organization Unknown Encounters Encounter Type Encounter Reason Primary Diagnosis Location Date Ambulatory Pre-op Exam [facility] 022 Care Team Organization Name Specialty Phone Email Start Date End Da te [facility] 10/30/202110/07 [facility] 10/30/2021
--- OUTSIDE RECORDS SUMMARY | 2024-10-21 08:52 | XMS_ITS | Clinical Summary ---
Author Organization [employer] Address [address] [place] [id number] Care Team Providers Care Assistant Name Role Phone Unavailable Primary Care Provider Unavailabl e Allergies Active Allergy Reactions Criticality Noted Date Comments Environmental Itching,Runny nose 10/30/2021 Medications loratadine (Claritin) 10 mg tablet Take 10 mg by mouth 1 (one) time each day. 2 Active triamcinolone (NASACORT) 55 mcg nasal inhaler Administer 2 sprays into each nostril 1 (one) time each day. 2 Active sertraline (ZOLOFT) 100 mg tablet TAKE 1/2 TAB ONCE A DAY FOR 14 DAYS, THEN INCREASE TO 1 TAB DAILY TOLERATED 2 Active [place] 0.025 % (0.035 %) ophthalmic solution INSTILL 1 DROP INTO AFFECTED EYE TWICE A DAY NEEDED 2 Active albuterol (Proventil;Vent osmany;Proair) 90 mcg/actuation inhaler Inhale 2 puffs every 6 (six) hours if needed for wheezing. Active Immunizations Immunization Administration Dates Next Due INFLUENZA, SEASONAL, INJECTABLE 02/20/2014 Social History Tobacco Use Types Packs/Day Years Used Date Smoking Tobacco: Never Tobacco Cessation:Counseling Given: Not Answered Alcohol Use Standard Drinks/Week Comments Yes 0 (1 standard drink = 0.6 oz pur e alcohol) social or less Sex and Gender Information Value Date Recorded Sex Assigned at Not on file Legal Sex Male 10:37 AM EDT Gender Identity Not on file Sexual Orientation Not on file Last Filed Vital Signs Vital Sign Reading Time Taken Comments Blood Pressure 116/82 10/30/2021 4:21 PM EDT Pulse 98 10/30/2021 4:21 PM EDT Temperature 36.7 C (98 F) 10/30/2021 4:21 PM EDT Respiratory Rate - - Oxygen Saturation - - Inhaled Oxygen Concentration - - Weight 104.6 kg (230 lb 8 oz) 10/30/2021 4:21 PM EDT Height 170.2 cm (5' 7 ) 10/30/2021 4:21 PM EDT Body Mass Index 36.1 10/30/2021 4:21 PM EDT Plan of Treatment Health Maintenance Due Date Last Done Comments Hepatitis C Screening 1992 Annual Physical Exam 2010 Tdap and Td Vaccines Adult 2011 COVID-19 Vaccine ( - 2023-2 5 season) 2023 Influenza Vaccine (#1) 2024 02/20/2014 HIB Vaccines Aged Out No longer eligi ble based on patient's age to complete this topic HPV Vaccines (No Doses Required) Completed Hepatitis A Vaccines Aged Out No long er eligible based on patient's age to complete this topic IPV Vaccines Aged Out No longer eligi ble based on patient's age to complete this topic Meningococcal Vaccine Aged Out No nina bryan eligible based on patient's age to complete this topic Pneumococcal Vaccine: Peds ( 0 to 5 Yrs) and At-Risk Pts (6 to 49 Yrs) Aged Out No lo nger eligible based on patient's age to complete this topic RSV <20 Months Aged Out No longer taj gible based on patient's age to complete this topic Insurance MEDICAID OUT-STATE
[2024-10-21 09:00] VITALS: PULSE 66; RESP 18; O2SAT 96
[2024-10-21] MEDS: Albuterol Sulfate 2.5 MG, Albuterol/Iprat 2.5/0.5MG 3 ML 3 ML INHALE (09:02)
[2024-10-21 09:47] LABS: IDNOW Serial# 55D5AD1C; Strep A Nucleic Acid Negative (Negative)
[2024-10-21 10:31] VITALS: BP 132/75; PULSE 70; RESP 18; TEMP 36.3; O2SAT 98
[2024-10-21 10:32] VITALS: BP 132/75; PULSE 70; RESP 18; TEMP 36.3; O2SAT 98
[2024-10-21 10:35] LABS: Resp Syncy Virus RNA Qual PCR NEGATIVE (Negative); SARS COV2 PCR INHOUSE NEGATIVE (Negative)
== END 2024-10-21 10:32 | disposition home or self-care (01) ==
PROVIDERS: Emergency Provider Emergency Medicine; PCP Family Medicine
DX: J45.901 Unspecified asthma with (acute) exacerbation (principal); R06.00 Dyspnea, unspecified; R05.9 Cough, unspecified; R09.81 Nasal congestion; R19.7 Diarrhea, unspecified
CPT/HCPCS: 71046; 87637; 87651; 94640; 96372; 99284; J2919

== ENCOUNTER → 2024-10-21 08:19 | Outpatient (BNV) | payer MEDICAID, SELFPAY | PROVIDERS: PCP Family Medicine; Visit Provider Radiology Diagnostic Radiology | DX: R05.9 Cough, unspecified (principal) | CPT/HCPCS: 71046 ==

== ENCOUNTER → 2024-10-24 21:36 | Outpatient (BNV) | payer MEDICAID, SELFPAY | PROVIDERS: PCP Family Medicine; Visit Provider Radiology Neuroradiology | DX: J98.11 Atelectasis (principal) | CPT/HCPCS: 71045 ==

== ENCOUNTER 2024-10-24 21:41 | Emergency (ER) | payer MEDICAID, SELFPAY ==
--- NOTE | ~2024-10-24 | XR_ITS ---
CLINICAL HISTORY: SOB 1 view chest x-ray Comparison: Chest x-ray from 10/21/2024 Findings: Low lung volumes with minimal atelectasis. No lobar consolidation. No pneumothorax or pleural effusion. Imaged mediastinum and imaged osseous structures appear unchanged by one view chest x-ray. IMPRESSION: Mild atelectasis without consolidation. This document has been electronically signed by: Jayesh Lozada MD on 10/24/2024 23:12:07
--- NOTE | ~2024-10-24 | CT_ITS ---
CLINICAL HISTORY: PNA?bronchitis? CT Chest W Contrast COMPARISON: CR - XR CHEST 1V - 10/24/24 22:36 EDT FINDINGS: No pulmonary consolidation or mass. No pleural effusion. No pneumothorax. No cardiomegaly. No pericardial effusion. No pathologically enlarged lymph nodes. No thoracic aortic aneurysm. No acute fracture. Diffusely hypodense liver consistent with hepatic steatosis. IMPRESSION: No acute findings. This document has been electronically signed by: Eduardo Blanco MD on 10/25/2024 04:21:52
[2024-10-24 22:04] VITALS: BP 134/78; PULSE 100; RESP 20; TEMP 36.5; O2SAT 95; BMI 41.0
[2024-10-24 22:25] LABS: MANUAL DIFF FLAG NO
[2024-10-24 22:26] LABS: Hematocrit 41.5 % (42.0-52.0); Hemoglobin 14.6 g/dl (14.0-18.0); Imm Gran Abs Auto 0.03 X10*3/uL (0.00-0.03); Imm Gran Pct Auto 0.3 % (0.0-0.4); Lymphocytes Absolute Auto 2.3 X10*3/uL (1.2-4.9); Mean Corpuscular HGB Conc 35.2 g/dl (31.0-36.0); Mean Corpuscular Hemoglobin 29.0 pg (27.0-33.0); Mean Corpuscular Volume 82.5 fL (80.0-98.0); NRBC Abs Auto 0.000 X10*3/uL (0.0-0.012); NRBC Pct Auto 0.0 /100WBC (0.0-0.2); Platelet Count 313 X10*3/uL (160-400); Red Blood Count 5.03 X10*6/uL (4.60-5.80); White Blood Count 8.7 X10*3/uL (4.8-10.8)
[2024-10-24 22:39] LABS: Alanine Aminotransferase 39 U/L (0-40); Albumin Level 4.4 g/dL (3.5-5.0); Alkaline Phosphatase 88 U/L (39-117); Anion Gap 14 (12-20); Aspartate Amino Transferase 22 U/L (5-37); Blood Urea Nitrogen 15 mg/dL (9-16); Calcium 9.2 mg/dL (8.4-10.2); Carbon Dioxide 26 mmol/L (22-29); Chloride 102 mmol/L (96-108); Creatinine Clr Calc Pharmacy 129.4; Estimated Glomerular Filt Rate > 60; Potassium 3.8 mmol/L (3.3-5.1); Sodium 138 mmol/L (135-145); Total Protein 7.4 g/dL (6.5-8.0)
[2024-10-24 23:02] LABS: Resp Syncy Virus RNA Qual PCR NEGATIVE (Negative); SARS COV2 PCR INHOUSE NEGATIVE (Negative)
[2024-10-25 00:13] VITALS: BP 121/77; PULSE 77; RESP 20; TEMP 36.7; O2SAT 95
--- NOTE | 2024-10-25 00:22 | PC.NURSE ---
Patient reports being short of breath starting last thrusday, and has been using his inhaler and nebs more often. Patient reports hx of asthma and SOB on exertion getting worse. Patient denies chest tightness, wheezing, fevers, or chills.
--- NOTE | 2024-10-25 00:45 | PC.NURSE ---
Patient desating to 88%, put on 2L of 02. at bedside stated that it is common to happen at night time when he falls asleep, questioned if there is hx of sleep apnea, stating undx. Patient trying to get an appointment with provider to offically diagnose.
--- OUTSIDE RECORDS SUMMARY | 2024-10-25 01:03 | XMS_ITS | Clinical Summary ---
Author Organization [employer] Address [address] [place] [id number] Care Team Providers Care Braille Proofreader Name Role Phone Unavailable Primary Care Provider [...]
[2024-10-25 02:24] VITALS: BP 120/79; PULSE 76; RESP 22; TEMP 36.7; O2SAT 97
[2024-10-25] MEDS: Magnesium Sulfate/H2O 2 GM/50 ML PIGGYBACK IV (02:36)
[2024-10-25 02:46] VITALS: PULSE 80; RESP 17; O2SAT 98
[2024-10-25] MEDS: Albuterol Sulfate 7.5 MG, Albuterol/Iprat 2.5/0.5MG 3 ML 3 ML INHALE (02:46)
--- NOTE | 2024-10-25 02:49 | ED_ITS ---
HPI - Asthma General Chief Complaint: Asthma Stated Complaint: Asthma Attack, cant talk, SOB Time Seen by Provider: 10/25/24 02:18 Source: patient Limitations: no limitations History of Present Illness ED Provider: Mary Dial PA-C HPI Narrative: 34-year-old male with a history of asthma, presents with asthma exacerbation. Patient states he was seen in the emergency department on October 21, treated for asthma exacerbation. He has been using his home nebulizer treatment as directed, he has been taking 50 mg of prednisone daily. Patient states his symptoms have not improved. Patient also takes daily Maria C, as he has seasonal allergies. Denies change in quality of his cough, no fevers, no sick contacts with similar symptoms. The patient does not use tobacco. Related Data Home Medications ?Medication ?Instructions ?Recorded ?Confirmed albuterol sulfate 90 mcg/actuation 2 puff inhalation Q 6H PRN wheezing 02/01/24 aerosol inhaler (Ventolin HFA) fluticasone propionate 115 inhalation 02/01/24 mcg-salmeterol 21 mcg/actuation HFA inhaler (Advair HFA) loratadine 10 mg tablet 10 mg PO DAILY 02/01/24 montelukast 10 mg tablet 10 mg PO DAILY 02/01/24 Previous Rx's ?Medication ?Instructions ?Recorded oseltamivir 75 mg capsule 75 mg PO BID 5 days #10 caps 07/05/23 benzonatate 100 mg capsule 100 mg PO TID PRN cough #14 caps 07/12/23 prednisone 20 mg tablet 40 mg (2 x 20 mg) PO DAILY # 10 tabs 07/12/23 albuterol sulfate 2.5 mg/0.5 mL 5 mg inhalation QID MT N shortness 12/30/23 solution for nebulization of breath or wheezing #30 ea azithromycin 250 mg tablet See Rx Instructions PO .COM PLEX #6 12/30/23 tabs benzonatate 100 mg capsule 100 mg PO TID PRN cough #20 caps 12/30/23 ipratropium 0.5 mg-albuterol 3 mg 3 ml inhalation Q20M PRN wheezing 10/21/24 (2.5 mg base)/3 mL nebulization #90 mL soln prednisone 50 mg tablet 50 mg PO DAILY Asthma exacer bation 10/21/24 5 days #5 tabs azithromycin 250 mg tablet 250 mg PO DAILY 4 days #4 t abs 10/25/24 Allergies Allergy/AdvReac Type Severity Reaction Status Date / Time animal dander (PET DANDER) Allergy Mild SNEEZING Verified 10/21/24 07:58 Seasonal Allergies Allergy Hives Verified 10/24/24 22:10 Review of Systems 2 Review of Systems: Yes all other systems are reviewed and are negative Constitutional: Constitutional: Denies fatigue and Denies fever(s) Cardiovascular: Cardiovascular: Denies chest pain Respiratory: Respiratory: Denies chest congestion, Reports cough and Reports wheezing Gastrointestinal: Gastrointestinal: Denies abdominal pain, Denies diarrhea, Denies nausea and Denies vomiting Endocrine: Endocrine: Denies fatigue Allergic/Immunologic: Allergic/Immunologic: Reports wheezing PMFSH Past Medical History Attestation statement: The following information was validated with the patient. Social History Social History Patient Tobacco Use Status: Never used Tobacco Smoked in Last 30 Days: No Use of substances other than those prescribed or required for medical reasons: No Advance Directives: No Advance Directives Information Provided: Yes Do you have a plan to hurt others: No Plan Physical Exam 2 Vital Signs: Vital Signs: Last Vital Signs Temp 98.0 F 10/25/24 02:24 Pulse 80 10/25/24 02:46 Resp 17 10/25/24 02:46 BP 120/79 10/25/24 02:24 Pulse Ox 97 10/25/24 03:55 O2 Del Method Room Air 10/25/24 03:55 BMI result Body Mass Index 41.0 Const: Other: Alert Orientation/consciousness: patient oriented x3 HEENT: Other: Sounds congested Resp: Other: Bronchospasm type cough, occasional expiratory wheeze, most prominent over right posterior yanez Cardio: Other: Normal peripheral perfusion Skin: Other: Warm dry no rash Neuro: General: patient oriented x3, gait normal, no focal motor deficits and CN's II-XI intact bilaterally Psych: Other: Cooperative Course Reevaluation(s) Reevaluation #1: Patient was ambulated, his oxygen was maintained at 97% on room Medications Administered Discontinued Medications Generic Name Dose Route Start Last Admin Trade Name Freq PRN Reason Stop Dose Admin Albuterol Sulfate 7.5 mg/ 0 mg 10/25/24 02:41 10/25/24 02:46 Albuterol/Ipratropium 3 ml INHALE 10/25/24 02:42 10 each ONCE ONE Administration Magnesium Sulfate 2 gm in 50 mls @ 150 mls/hr 10/25/24 02:27 10/25/24 03:16 Magnesium Sulfate/H2o IV 10/25/24 02:46 Infused ONCE ONE Infusion Iohexol 65 ml 10/25/24 03:27 10/25/24 03:28 Iohexol 350 Mg/Ml 100 Ml Infus..Btl IV 10/25/24 03:28 65 ml ONCE ONE Administration Medical Decision Making Medical Decision Making MDM Narrative: 34-year-old male with a history of asthma, presents with asthma exacerbation. Patient states he was seen in the emergency department on October 21, treated for asthma exacerbation. He has been using his home nebulizer treatment as directed, he has been taking 50 mg of prednisone daily. Patient states his symptoms have not improved. Patient also takes daily Maria C, as he has seasonal allergies. Denies change in quality of his cough, no fevers, no sick contacts with similar symptoms. The patient does not use tobacco. Problem: Asthma History: Per patient I have considered the following differential diagnoses: Refractory Asthma exacerbation, bronchitis, pneumonia, viral syndrome Plan: Patient is here with ongoing asthma exacerbation that is refractory to his initial treatment. On chest x-ray, there was no consolidation, he has atelectasis. We will obtain a CT scan of the chest, he already had a steroid today, giving an updraft and 2 g of magnesium. I have independently reviewed the following tests: Labs: No leukocytosis, not anemic, no electrolyte abnormality, viral panel negative Chest x-ray: Findings: Low lung volumes with minimal atelectasis. No lobar consolidation. No pneumothorax or pleural effusion. Imaged mediastinum and imaged osseous structures appear unchanged by one view chest x-ray. IMPRESSION: Mild atelectasis without consolidation. CT chest:No pulmonary consolidation or mass. No pleural effusion. No pneumothorax. No cardiomegaly. No pericardial effusion. No pathologically enlarged lymph nodes. No thoracic aortic aneurysm. No acute fracture. Diffusely hypodense liver consistent with hepatic steatosis. IMPRESSION: No acute findings. Lab Data 10/24/24 22:20 10/24/24 22:20 Labs: Lab Results 10/24/24 Range/Units 22:20 WBC 8.7 (4.8-10.8) X10*3/uL RBC 5.03 (4.60-5.80) X10*6/uL Hgb 14.6 (14.0-18.0) g/dl Hct 41.5 L (42.0-52.0) % MCV 82.5 (80.0-98.0) fL MCH 29.0 (27.0-33.0) pg MCHC 35.2 (31.0-36.0) g/dl RDW 13.3 (11.0-16.0) % Plt Count 313 (160-400) X10*3/uL MPV 9.9 (9.4-12.4) fL Immature Gran % (Auto) 0.3 (0.0-0.4) % Neut % (Auto) 62.9 (45-73) % Lymph % (Auto) 26.4 (20-40) % [place] % (Auto) 8.4 (2-11) % Eos % (Auto) 1.5 (0-4) % Baso % (Auto) 0.5 (0-2) % Lymph # (Auto) 2.3 (1.2-4.9) X10*3/uL [place] # (Auto) 0.7 (0.1-1.2) X10*3/uL Eos # (Auto) 0.1 (0.0-0.4) X10*3/uL Baso # (Auto) 0.0 (0.0-0.2) X10*3/uL Abs Immat Gran (auto) 0.03 (0.00-0.03) X10*3/uL Absolute Neuts (auto) 5.5 (2.0-8.3) x10*3/uL Absolute Nucleated RBC 0.000 (0.0-0.012) X10*3/uL Nucleated RBC % (auto) 0.0 (0.0-0.2) /100WBC Sodium 138 (135-145) mmol/L Potassium 3.8 (3.3-5.1) mmol/L Chloride 102 (96-108) mmol/L Carbon Dioxide 26 (22-29) mmol/L Anion Gap 14 (12-20) BUN 15 (9-16) mg/dL Creatinine 1.01 (0.5-1.4) mg/dL Estim Creat Clear Calc 129.4 Estimated GFR > 60 Random Glucose 196 H (60-115) mg/dL Calcium 9.2 D (8.4-10.2) mg/dL Total Bilirubin 0.4 (0.0-1.0) mg/dL AST 22 (5-37) U/L ALT 39 (0-40) U/L Alkaline Phosphatase 88 (39-117) U/L Total Protein 7.4 (6.5-8.0) g/dL Albumin 4.4 (3.5-5.0) g/dL Influenza Type A (PCR) NEGATIVE (Negative) Influenza Type B (PCR) NEGATIVE (Negative) RSV RNA Qual (PCR) NEGATIVE (Negative) SARS-CoV-2 RNA (RT-PCR) NEGATIVE (Negative) Discharge Plan Discharge Clinical Impression: Asthma exacerbation, Bronchitis Patient Disposition: Home, Self-Care Instructions: Asthma (ED), Acute Bronchitis (ED) Additional Instructions: You are being treated for asthma exacerbation/bronchitis. See home care instructions. The CT scan of the chest did not reveal pneumonia. Use your updrafts as directed, continue the course of steroid, take the Z-Michele as directed. Call your primary care provider for an appointment to discuss the management of your asthma. Prescriptions: New azithromycin 250 mg tablet 250 mg PO DAILY 4 Days Qty: 4 0RF Rx Instructions: start on day 2 of therapy No Action oseltamivir 75 mg capsule 75 mg PO BID 5 Days Qty: 10 0RF prednisone 20 mg tablet 40 mg PO DAILY Qty: 10 0RF benzonatate 100 mg capsule 100 mg PO TID PRN (Reason: cough) Qty: 14 0RF azithromycin 250 mg tablet See Rx Instructions .ROUTE .COMPLEX Qty: 6 0RF Rx Instructions: For 250 mg dose pack: take 500 mg today (day 1), then 250 mg for 4 days (days 2-5) benzonatate 100 mg capsule 100 mg PO TID PRN (Reason: cough) Qty: 20 0RF albuterol sulfate 2.5 mg/0.5 mL solution for nebulization 5 mg inhalation QID PRN (Reason: shortness of breath or wheezing) Qty: 30 0RF prednisone 50 mg tablet 50 mg PO DAILY 5 Days Qty: 5 0RF ipratropium-albuterol 0.5 mg-3 mg(2.5 mg base)/3 mL solution for nebulization 3 ml inhalation Q20M PRN (Reason: wheezing) Qty: 90 0RF fluticasone propion-salmeterol [Advair HFA] 115-21 mcg/actuation HFA aerosol inhaler inhalation albuterol sulfate [Ventolin HFA] 90 mcg/actuation HFA aerosol inhaler 2 puff inhalation Q6H PRN (Reason: wheezing) loratadine 10 mg tablet 10 mg PO DAILY montelukast 10 mg tablet 10 mg PO DAILY Stand Alone Forms: Work/School Release Print Language: Luxembourger
[2024-10-25] MEDS: iohexoL 350 MG/ML 100 ML INFUS..BTL 65 ML IV (03:28)
--- NOTE | 2024-10-25 03:52 | MHC.EDTECH ---
This tech took over care of pt at 0300AM,rounded and introduced self to pt, patient ambulated with a steady gait, patient's O2 sat on ambulation is 97%on room air, RN was made aware, at bedside call bloom in reach
[2024-10-25 03:55] VITALS: O2SAT 97
[2024-10-25 04:53] VITALS: BP 126/90; PULSE 90; RESP 18; TEMP 36.7; O2SAT 95
[2024-10-25 05:01] VITALS: BP 126/90; PULSE 90; RESP 18; TEMP 36.7; O2SAT 95
== END 2024-10-25 05:01 | disposition home or self-care (01) ==
PROVIDERS: Emergency Provider Emergency Medicine; PCP Family Medicine
DX: J45.901 Unspecified asthma with (acute) exacerbation (principal); Z79.899 Other long term (current) drug therapy
CPT/HCPCS: 71045; 71260; 80053; 85025; 87637; 94640; 96365; 99285; J3475; Q9967

== ENCOUNTER → 2024-10-25 02:27 | Outpatient (BNV) | payer MEDICAID, SELFPAY | PROVIDERS: Emergency Provider Emergency Medicine; PCP Family Medicine; Visit Provider Radiology Diagnostic Radiology | DX: J45.901 Unspecified asthma with (acute) exacerbation (principal) | CPT/HCPCS: 71260 ==

== ENCOUNTER → 2024-12-01 20:30 | Outpatient (BNV) | payer MEDICAID, SELFPAY | PROVIDERS: PCP Family Medicine; Visit Provider Internal Medicine | DX: R06.83 Snoring (principal) | CPT/HCPCS: 95811 ==

== ENCOUNTER → 2024-12-01 20:30 | Outpatient (REF) | payer MEDICAID, SELFPAY ==
--- OUTSIDE RECORDS SUMMARY | 2024-12-01 21:01 | XMS_ITS | Encounter Summary ---
Author Organization [employer] [facility] Address [address] [place] [id number] Care Team Providers Care Bakery Team Member Name Role Phone Unavailable Primary Care Provider Unavailabl e Encounter Details Date Type Department Care Team (Late st Contact Info) Description 10/31/2021 Scanned Document [facility] [place] [address], [place] [id number] Parvez Pickard MD [address] [facility] [place] [address] vas reversal fees Social History Tobacco Use Types Packs/Day Years Used Date Smoking Tobacco: Never Alcohol Use Standard Drinks/Week Comments Yes 0 (1 standard drink = 0.6 oz pur e alcohol) social or less Sex and Gender Information Value Date Recorded Sex Assigned at Not on file Legal Sex Male 10:37 AM EDT Gender Identity Not on file Sexual Orientation Not on file COVID-19 Exposure Response Date Recorded In the last 10 days, have yo u been in contact with someone who was confirmed or suspected to have Coronavirus/COVID-19? No / Unsure 10/30/2021 3:57 PM EDT documented as of this encounter Plan of Treatment Not on file documented as of this encounter Visit Diagnoses Not on filedocumented in this encounter
--- OUTSIDE RECORDS SUMMARY | 2024-12-01 21:01 | XMS_ITS | Encounter Summary ---
Author Organization [employer] Address [address] [place] [address] [address] [place] [address] Care Team Providers Care Kitchen Clerk Name Role Phone Cindy Lopes Primary Care Provider [phone] Iram Kern MD Primary Care Provider Reason for Visit * Reason Onset Date Comments ER Follow-up 07/13/2023 Encounter Details Date Type Department Care Team (Late st Contact Info) Description 07/13/2023 Telephone [facility] [address] [place] [address] Cindy Lopes FNP [address] [place] [address] ER Follow-up Social History Tobacco Use Types Packs/Day Years Used Date Smoking Tobacco: Never Passive Smoke Exposure: Never Smokeless Tobacco: Never Alcohol Use Standard Drinks/Week Comments Not Currently 0 (1 standard drink = 0.6 oz pur e alcohol) Sex and Gender Information Value Date Recorded Sex Assigned at Male 01/05/2022 10:36 AM EDT Legal Sex Male 10:36 AM EDT Gender Identity Male 01/05/2022 10:36 AM EDT Sexual Orientation Choose not to disclose 2021 10:36 AM EDT documented as of this encounter Miscellaneous Notes * Telephone Encounter - Tracy Briggs RN - 07/13/2023 12:16 PM EDT T/C to pt. For below message , pt. Has ED visit on : Date: 07/11, Hospital: [facility], Seen for: Cough. Pt.States he is having side effect from medication given from ED . Pt. Has nausea and extreme drowsiness. Pt. Advised to stop medication, pt. Want to see provider today, no apt. Available. Pt. Advised to come to walk in center where he wants to discuss alternative for benzonatate 100 mg which does notgive drowsiness so pt. Can operate car. Pt. Advised to not operate car or any machinery right now. Pt. States he is going to call his to bring at [facility]. [facility] hours advised. Also advised to go to nearest ED in case of any new or worsening symptoms. Pt. Verbally agreed and understood. * Telephone Encounter - Alexander Meade - 07/13/2023 8:58 AM EDT Patient calling to report ED visit on : Date: 07/11 Hospital: [facility] Seen for: Cough Patient advised will forward to team nurse for follow up documented in this encounter Plan of Treatment Not on file documented as of this encounter Visit Diagnoses Not on filedocumented in this encounter Care Teams Kitchen Clerk Relationship Specialty Start Date End Date Cindy Lopes FNP [address] [place] [address] PCP - General Family Medicine 05/08/22 08/05/23 Iram Kern MD [address] [place] [address] PCP - General Family Medicine 08/06/23 documented as of this encounter
--- OUTSIDE RECORDS SUMMARY | 2024-12-01 21:01 | XMS_ITS | Encounter Summary ---
Author Organization [employer] Address [address] [place] [address] [address] [place] [address] Care Team Providers Care Smutter Name Role Phone Cindy Lopse Primary Care Provider [phone] Iram Kern MD Primary Care Provider [phone] Reason for Visit * Reason Onset Date Comments Medication Question 07/13/2023 Encounter Details Date Type Department Care Team ([facility] st Contact Info) Description 07/13/2023 Telephone [facility] [address] [place] [address] Cindy Lopes FNP [address] [place] [address] Medication Question Social History Tobacco Use Types Packs/Day Years [...] Encounter - Tracy Briggs RN - 07/13/2023 12:11 PM EDT T/C to pt. For below message , pt. Has ED visit on : Date: 07/11, Hospital: [facility], Seen for: Cough. Pt.States he is having [...] going to call his to bring at [facility]. [facility] hours advised. Also advised to go to nearest ED in case of any new or worsening symptoms. Pt. Verbally agreed and understood. * Telephone Encounter - Alexander Meade - 07/13/2023 9:00 AM EDT Tc from patient calling to request a alternative medication for Benzonatate 100mg was prescribed Peng provider on 07/11 at [facility] and is having a side affect from it and it is nausea and extreme drowsiness documented in this encounter Plan of Treatment Not on file documented as of this encounter Visit Diagnoses Not on filedocumented in this encounter Care Teams Smutter Relationship Specialty Start Date End Date Cindy Lopes FNP [address] [place] [address] PCP - General Family Medicine 05/08/22 08/05/23 Iram Kern MD [address] [place] [address] PCP - General Family Medicine 08/06/23 documented as of this encounter
--- OUTSIDE RECORDS SUMMARY | 2024-12-01 21:01 | XMS_ITS | Clinical Summary ---
Author Organization [employer] Address [address] [facility] [address] [place] [address] Care Team Providers Care Nurse Researcher Name Role Phone Iram Kern MD Primary Care Provider [phone] Allergies Active Allergy Reactions Criticality Noted Date Comments Cat Dander Other Low 10/21/2024 Medications * This document contains information received from the source organization and may not represent a complete record from that organization. fluticasone (Flonase) 50 MCG/ACT nasal spray Administer 2 sprays into each nostril Once per day. Shake gently. Before first use, prime pump. After use, clean tip and replace cap. 16 g 3 2025 Active pseudoephedrine (Sudafed) 30 MG tablet Take 1 tablet (30 mg) by mouth every 6 (six) hours if needed for congestion. 20 tablet 025 2025 Active ibuprofen 600 MG tablet Take 1 tablet (600 mg) by mouth every 6 (six) hours if needed for mild pain. 40 tablet 1 025 2025 Active fexofenadine (Maria C) 180 MG tabletIndicatio ns:Environmenta l allergies Take 1 tablet (180 mg) by mouth Once per day. 90 tablet 3 2025 Active albuterol (2.5 MG/3ML) 0.083% nebulizer solutionIndicat ions:Severe persistent asthma with acute exacerbation Take 3 mL (2.5 mg) by nebulization every 4 (four) hours if needed for wheezing. 75 mL 11 025 2025 Active montelukast (Singulair) 10 MG tabletIndicatio ns:Severe persistent asthma with acute exacerbation Take 1 tablet (10 mg) by mouth Once per day. 90 tablet 3 Active fluticasone-meredith meterol (Advair HFA) 115-21 MCG/ACT inhalerIndicati ons:Severe persistent asthma with acute exacerbation Inhale 2 puffs in the morning and at bedtime. Rinse mouth with water after use to reduce aftertaste and incidence of candidiasis. Do not swallow. 12 g 6 Active albuterol (Ventolin HFA) 108 (90 Base) MCG/ACT inhalerIndicati ons:Severe persistent asthma with acute exacerbation Inhale 1 puff every 6 (six) hours if needed for wheezing. 18 g 6 025 Active albuterol (Ventolin HFA) 108 (90 Base) MCG/ACT inhalerIndicati ons:Uncontrolle d asthma Inhale 1 puff every 6 (six) hours if needed for wheezing. 18 g 3 024 2024 Discontinued(R eorder (will not trigger notification to Pharmacy)) albuterol (2.5 MG/3ML) 0.083% nebulizer solution Take 3 mL (2.5 mg) by nebulization every 4 (four) hours if needed for wheezing. 75 mL 3 024 2024 Discontinued(R eorder (will not trigger notification to Pharmacy)) montelukast (Singulair) 10 MG tabletIndicatio ns:Uncontrolled asthma TAKE 1 TABLET (10 MG) BY MOUTH ONCE PER DAY. 90 tablet 025 2024 Discontinued(R eorder (will not trigger notification to Pharmacy)) Advair HFA 115-21 MCG/ACT inhalerIndicati ons:Uncontrolle d asthma INHALE 2 PUFFS IN THE MORNING AND AT BEDTIME. RINSE MOUTH WITH WATER AFTER USE TO REDUCE AFTERTASTE AND INCIDENCE OF CANDIDIASIS. DO NOT SWALLOW. 12 g 3 025 2024 Discontinued(R eorder (will not trigger notification to Pharmacy)) fexofenadine (Maria C) 180 MG tablet Take 1 tablet (180 mg) by mouth Once per day. 30 tablet 11 025 2024 Discontinued(R eorder (will not trigger notification to Pharmacy)) fexofenadine (Maria C) 180 MG tablet Take 1 tablet (180 mg) by mouth Once per day. 30 tablet 11 025 2024 Discontinued(R eorder (will not trigger notification to Pharmacy)) albuterol (2.5 MG/3ML) 0.083% nebulizer solution Take 3 mL (2.5 mg) by nebulization every 4 (four) hours if needed for wheezing. 75 mL 3 025 2024 Discontinued(R eorder (will not trigger notification to Pharmacy)) predniSONE (Deltasone) 50 MG tabletIndicatio ns:Severe persistent asthma with acute exacerbation Take 1 tablet (50 mg) by mouth Once per day for 5 days. 5 tablet 025 2024 Active Problems Problem Noted Date Diagnosed Date Bronchitis 11/20/2024 Influenza 11/20/2024 Environmental allergies 11/20/2024 Severe persistent asthma 11/20/2024 Assessment & Plan (11/22/2024 11:47 AM EDT): - Severe asthma with recent exacerbation, not currently requiring hospitalization or immediate prednisone. Asthma management includes use of Advair, rescue inhalers, and nebulizer. Consideration for escalation of therapy with triple inhalers or Xolair if control remains inadequate. - Prescribed refills for Advair and rescue inhalers. Provided prescription for prednisone to be used if symptoms do not improve after resuming regular medications. Advised to obtain flu vaccine due to asthma. Cleared to return to work on November 23, 2024. Referred to pulmonology for further evaluation and possible adjustment of asthma regimen. - Risks and side effects: Discussed that prednisone may affect blood sugars and should only be used if necessary. Loud snoring 10/27/2024 Low back pain, episodic 02/14/2024 Assessment & Plan (02/14/2024 9:32 AM EST): - no red flags on exam - back exercise at home - continue judicious use of analgesics - continue non-pharmacological approach, heat, massage, and healthy weight - refer to PT Left hand paresthesia 02/14/2024 Assessment & Plan (02/14/2024 9:35 AM EST): - history of hypokalemia in a setting of frequent albuterol use, resolved - evaluate for CT Metabolic dysfunction-associ ated steatotic liver disease (MASLD) 02/14/2024 Assessment & Plan (02/14/2024 2:19 PM EST): - Hepatitis profile was negative; will check Hep B immunity -Ordered HFP 02/14/24 -Ordered abdomen US 02/14/24 - work on lifestyle modifications Depression 11/09/2023 Assessment & Plan (02/14/2024 2:20 PM EST): Established with Therapist at [facility]. Assessment & Plan (02/12/2024 6:14 PM EST): >>ASSESSMENT AND PLAN FOR MODERATE RECURRENT MAJOR DEPRESSION (CMS/HCC) WRITTEN ON 12/28/2023 10:33 AM BY MARCO GUPTA During IB Consult Shakira presenting with depressed mood, hopelessness, irritable mood, loss of interests/pleasure , sense of isolation/loneliness , isolating, changes in sleep difficulty falling asleep, psychomotor retardation, fatigue/loss of energy, difficulty concentrating, indecisiveness; for a period of 18+ mo, for most or all symptoms in the context of family issues and losing services due to insurance and chronic mental health condition. Shakira endorsed depressive sxs associated with lack of OP services, complicated family dynamics and stress at work and home. Pt had a therapist with [facility] but lost insurance (two years ago). Pt reports living with depression on and off over the last years. Aware of importance of reaching out to others and including strategies to challenge negative thoughts. clinician engaged patient with active/reflective listening. Reviewed and assessed for risk, current stressors and protective factors using open-ended questions. Explored strategies that Shakira could incorporate into daily routine to decrease sxs. Assessment & Plan (11/13/2023 6:31 AM EDT): - PHQ9 score 7 today - previously seeing counselor - patient has stress from work environment and parenting two children with possible autism and behavioral problems - patient is interested in counseling - will refer for outpatient counseling service Obesity 11/08/2023 Assessment & Plan (02/14/2024 2:13 PM EST): -encouraged dietary changes. -recommended lifestyle modifications. Elevated blood pressure reading 09/17/2023 Assessment & Plan (02/14/2024 9:51 AM EST): -Goal BP < 130/80 per ACC/AHA guideline (pharmacological treatment threshold >=140/90) -BP suboptimal today -Continue working on lifestyle modifications -Recommended self-monitoring BP. -Return for BP check with our nurse in 3 weeks. If home BP > 135/85, and office BP 140/90, start valsartan 40 mg daily, olmesartan 10 mg daily, or telmesartan 20 mg daily. -May improve with treatment for presumptive PARESH (appointment with sleep medicine clinic pending) Assessment & Plan (11/13/2023 6:31 AM EDT): -Goal BP < 140/90 per JNC-8 and < 130/80 per ACC/AHA guideline (Treatment threshold >=140/90) -BP within acceptable range today -Continue working on lifestyle modifications -Recommended self-monitoring BP. Assessment & Plan (09/17/2023 2:58 PM EDT): Today BP 130/100 checked manually possible reactive -to f w PCP ,advised to bring home BP readings at upcoming apt Type 2 diabetes mellitus 01/25/2023 Assessment & Plan (11/22/2024 11:46 AM EDT): Lab Results Component Value Date HGBA1C 6.1 (A) 11/09/2023 HGBA1C 6.1 (A) 08/06/2023 HGBA1C 5.9 01/27/2023 HGBA1C 11.9 (H) 12/13/2020 Assessment & Plan (02/14/2024 2:18 PM EST): - Dx 2020, A1C 11.9%. Previously on basal insulin and empagliflozin, which were weaned off since patient lost weight and improved diet / physical activity level. - Most recent A1C 6.1% today, slight increase from September 2023 - Current treatment: lifestyle modifications, patient is no longer on medications - Previous treatment: metformin 1000 mg bid; Lantus insulin; empagliflozin - Glucose monitoring system: none - Continue lifestyle modifications - Lipid profile: last done on 02/01/24, Trig 153, Chol 192, LDL 127, HDL 35 - Microalbumin test: done on 02/01/24 TNP - Eye exam: recommended to schedule appointment with his gleason operator - Comprehensive foot exam: 11/09/23, normal Assessment & Plan (11/13/2023 6:29 AM EDT): - Dx 2020, A1C 11.9%. Previously on basal insulin and empagliflozin, which were weaned off since patient lost weight and improved diet / physical activity level. - Most recent A1C 6.1% today, slight increase from September 2023 - Current treatment: lifestyle modifications, patient is no longer on medications - Previous treatment: metformin 1000 mg bid; Lantus insulin; empagliflozin - Glucose monitoring system: none - Continue lifestyle modifications - Lipid profile: order today - Microalbumin test: order - Eye exam: recommended to schedule appointment with his gleason operator - Comprehensive foot exam: 11/09/23, normal Assessment & Plan (08/06/2023 9:28 PM EDT): -hb1AC 6.1 CBG today capillary 99 -to f w PCP Asthma 01/25/2023 Assessment & Plan (10/27/2024 11:15 AM EDT): Finish antibiotics C/w albuterol inhaler as prescribed Patient reports he does have a napper fixer I encourage him to book a f/u appointment Assessment & Plan (02/14/2024 9:47 AM EST): - last exacerbation in Dec 2023, requiring hospitalization, systemic prednisone use, and antibiotic. No intubation. - continue fluticasone propionate / salmeterol (Advair) as maintenance Assessment & Plan (11/09/2023 12:04 PM EDT): - patient is currently prescribed arnuity and albuterol - continue current treatment Resolved Problems Problem Noted Date Diagnosed Date Resolved Date Sinus tachycardia 01/04/2024 02/14/2024 Assessment & Plan (01/04/2024 6:59 PM EDT): Mild tachy ,regular rhythm Seems more calm HR after resting Possibly in setting of LIO use -need to monitor -pt to f w PCP requested for no more than 4 to 6 weeks Moderate persistent asthma with exacerbation 02/12/2024 Assessment & Plan (01/04/2024 6:59 PM EDT): Pt w recurrent asthma exacerbations currently improving on steroid slow taper for 2 weeks Normal lung exam at this time Normal VS Gave today Excuse for work for 48 h -referred to napper fixer for uncontrolled asthma -PFT referred today -sleep med -loud snoring and apnea--pt w loud snoring , obesity, apnea worsening asthma to r/o PARESH -refilled inh but change today to advair 2 puff BID from Arnuity--explained to start inh once completes PO steroids -Px LIO inh and liq for NBZ machine -COVID 19 vaccine today, Had Flu vaccine this am in hospital , S/p P20 11/2023 Assessment & Plan (12/22/2023 9:57 AM EDT): Avoid asthma triggers Prednisone 60mg for 5 days C/w albuterol nebulizations Q 4-6hrs PRN Plenty of fluids and rest Gastroenteritis due to COVID-19 virus 09/17/2023 11/08/2023 Assessment & Plan (09/21/2023 4:47 PM EDT): Symptoms are more suggestive of viral infection from recently dxed COVID 19 but denies actual concerning symptoms at this time for strep throat as fever,COLEY,sore throat so will hold ATB ,test was actually not indicated but done prior pt was seen. Pt reports diarrhea resolved for few days but noted again since yesterday and dome mild KING but denies to be significant, no CP,dizziness nor other concerning symptoms.Can attribute dyspnea that pt is not using his arnuity ellipta given issues to case picker at pharmacy but states will resume today -labs ,stool test order today ---will call w results -tylenol prn -advised hydration -Continue paxlovid -needs to complete 1 more day of tx -will hold on ATB for strep throat + with no current concerning symptoms and possibly colonized but if symptomatic will need to treat ,explained pt about alarm signs and symptoms -Excuse letter for work given to pt-[place] to help w letter to rest at home for another 4 days from today ,pt to case picker letter today from front facer -pt states will case picker his arnuity ellipta today from px ,not using for some time and LIO prn -alarm signs and symptoms discussed w pt in case KING not improving to come to [facility] or ED if alarming symptoms Assessment & Plan (09/17/2023 2:58 PM EDT): Pt w GI symptoms and cough Today here had COVID 19 + and strep test + confirmed both test today ,Flu test was neg Symptoms are more suggestive of viral infection as COVID 19 but denies actual concerning symptoms at this time for strep throat as fever,COLEY,sore throat so will hold ATB ,test was actually not indicated but done prior pt was seen. -advised hydration -dextromethorphan PRN -tylenol prn -paxlovid Px today given risk factors as asthma,hx of DM2 and obesity -will hold on ATB for strep throat + with no current concerning symptoms and possibly colonized but if symptomatic will need to treat ,explained pt about alarm signs and symptoms -Excuse letter for work given to pt Encounters Date Type Department Care Team Description 11/22/2024 Telephone [facility] [address] [place] [phone] Iram Kern MD Care Coordination 11/20/2024 2:30 PM EDT Office Visit [facility] [address] [place] [address] Alma Delia Lamb MD Environmental allergies (Primary Dx); Type 2 diabetes mellitus without complication, without long-term current use of insulin ([facility]); Dietary counseling; Exercise counseling; Class 3 severe obesity without serious comorbidity with body mass index (BMI) of 40.0 to 44.9 in adult, unspecified obesity type; Severe persistent asthma with acute exacerbation 11/20/2024 Travel 11/20/2024 Telephone [facility] [address] [place] [address] Iram Kern MD 11/01/2024 Telephone [facility] [address] [place] [address] Iram Kern MD Letter for School/Work 10/27/2024 10:45 AM EDT Office Visit [facility] [address] [place] [phone] Ananya Fernandez MD Moderate persistent asthma, unspecified whether complicated; Loud snoring 10/27/2024 Travel 10/26/2024 Telephone [facility] [address] [place] [address] Iram Kern MD Nurse Triage 10/25/2024 Orders Only [facility] External Provider, [facility] 10/24/2024 Orders Only GENERIC EXTERNAL DATA DEPARTMENT Provider, Generic External Data 10/21/2024 Orders Only [facility] External Provider, [facility] 09/28/2024 Telephone [facility] [address] [place] [phone] Iram Kern MD No Show 09/27/[address] [address] Iram Kern MD chart prep 09/22/2024 9:40 AM EDT Office Visit [facility] [address] [place] [phone] Amina Keenan, DO Sore throat 09/22/2024 Travel from Last 3 Months Immunizations Immunization Administration Dates Next Due Influenza injectable quadriv alent preservative free 01/06/2021,12/30/2018,03/06/2018 Influenza, IIV3, injectable 01/04/2024, 4 Influenza, seasonal, injecta ble, preservative free 01/04/2024 Pfizer Covid-19 Vaccine 12+ 01/04/2024 Pneumococcal Conjugate PCV 20 11/09/2023 Tdap 11/09/2023 Family History Medical History Relation Name Comments Prostate cancer Maternal Grandfather Relation Name Status Comments Maternal Grandfather Social History Tobacco Use Types Packs/Day Years Used Date Smoking Tobacco: Never Passive Smoke Exposure: Never Smokeless Tobacco: Never Tobacco Cessation:Counseling Given: Not Answered Alcohol Use Standard Drinks/Week Comments Not Currently 0 (1 standard drink = 0.6 oz pur e alcohol) ocasionaly Depression Answer Date Recorded Patient Health Questionnaire-9 Score 14 12/28/2023 Patient Health Questionnaire-9 Score 14 12/28/2023 Last PHQ-9: Questionnaire Data Not on file 1 Housing Stability Answer Date Recorded What is your housing situation today? I have leeroy faustin 09/21/[address] you li ve. Do you have problems with any of the following? None of the above 09/21/2023 Food Insecurity Answer Date Recorded Within the past 12 months, y ou worried that your food would run out before you got money to buy more: Never True 09/21/2023 Within the past 12 months,th e food you bought just didn't last and you didn't have enough money to get more: Never True Transportation Answer Date Recorded In the past 12 months, has l ack of transportation kept you from medical appts, meetings, work or from getting things needed for daily living? No 09/21/2023 Utilities Answer Date Recorded In the past 12 months, has t he electric, gas, oil or water company threatened to shut off services in your home? No 09/21/2023 Depression Answer Date Recorded Patient Health Questionnaire-2 Score 4 12/28/2023 Internet Access Answer Date Recorded Internet Access Q1 Yes 11/05/2023 Internet Access Q2 Not on file 11/05/2023 Sex and Gender Information Value Date Recorded Sex Assigned at Male 01/05/2022 10:36 AM EDT Legal Sex Male 10:36 AM EDT Gender Identity Male 01/05/2022 10:36 AM EDT Sexual Orientation Choose not to disclose 2021 10:36 AM EDT Last Filed Vital Signs Vital Sign Reading Time Taken Comments Blood Pressure 140/90 11/20/2024 2:56 PM EDT Pulse 108 11/20/2024 2:56 PM EDT Temperature 36.1 C (97 F) 11/20/2024 2:56 PM EDT Respiratory Rate 20 11/20/2024 2:56 PM EDT Oxygen Saturation 97% 11/20/2024 2:56 PM EDT Inhaled Oxygen Concentration - - Weight 119 kg (262 lb 3.2 oz) 11/20/2024 2:56 PM EDT Height 170.2 cm (5' 7 ) 11/20/2024 2:56 PM EDT Body Mass Index 41.07 11/20/2024 2:56 PM EDT Plan of Treatment Health Maintenance Due Date Last Done Comments Dental Oral Exam 1992 Dental Prophylaxis 1992 Dental X-Ray: Full Mouth 1992 Disability Screening 1992 Eye Exam 2002 Alcohol/Substance Use Screening 2004 Family Planning (PISQ) 2007 HPV Vaccines (1 - Male 3-dose series) 2007 Hepatitis A Vaccines (1 of 2 - Risk 2-dose series) 2011 Dental X-Ray: Bitewings 07/18/2023 07/16/2022 Diabetes: Hemoglobin A1C 05/08/2024 024, 08/06/2023, 01/27/2023, Additional history exists Depression Monitoring 06/27/2024 12/28/2023, 024 SDOH Screening 09/20/2024 09/21/2023 Influenza Vaccine (#1) 2024 , 01/04/2024, 01/06/2021, Additional history exists Diabetes: Foot Exam 11/08/2024 11/09/2023, 11/09/2023, 11/09/2023, Additional history exists Diabetes: Urine Protein Screening 01/31/2025 02/01/2024 Lipid Panel 01/31/2025 02/01/2024, 04/0 07/2021, 12/13/2020 Tobacco Screening 11/20/2025 11/20/2024 DTaP/Tdap/Td Vaccines (2 - Td or Tdap) 11/08/2033 11/09/2023 Zoster Vaccines (1 of 2) 2042 RSV Patients and Patients Aged 60 years or older (1 - 1-dose 75+ series) 2067 HIV Screening Completed 09/22/2023 Hepatitis C Screening Completed 09/22/2023 Pneumococcal Vaccine: Pediatrics (0 to 5 Years) and At-Risk Patients (6 to 49) Years Completed 11/09/2023 COVID-19 Vaccine Completed 01/04/2024, 05/2020, 06/03/2020 HIB Vaccines Aged Out No longer eligi ble based on patient's age to complete this topic Hepatitis B Vaccines Discontinued IPV Vaccines Aged Out No longer eligi ble based on patient's age to complete this topic Meningococcal B Vaccine Aged Out No l onger eligible based on patient's age to complete this topic Meningococcal Vaccine Aged Out No nina bryan eligible based on patient's age to complete this topic RSV under 20 months Aged Out No longe r eligible based on patient's age to complete this topic Rotavirus Vaccines Aged Out No longer eligible based on patient's age to complete this topic Procedures Procedure Name Priority Date/Time Associated Diagnosis Comments CT CHEST W CONTRAST Routine 10/25/2024 4 :21 AM EDT XR CHEST 1 VIEW Routine 10/24/2024 11:12 PM EDT COMPREHENSIVE METABOLIC PANEL Routine 10/24/2024 10:20 PM EDT CBC WITH AUTO DIFFERENTIAL Routine 10/24/2024 10:20 PM EDT SARS COV2/INFLUENZA A/B AND RSV RNA QL NAAT Routine 10/24/2024 10:20 PM EDT STREP A NUCLEIC ACID Routine 10/21/2024 9:24 AM EDT XR CHEST 2 VIEWS Routine 10/21/2024 9:10 AM EDT SARS COV2/INFLUENZA A/B AND RSV RNA QL NAAT Routine 10/21/2024 8:09 AM EDT POCT RAPID STREP A Routine 09/22/2024 9: 22 AM EDT Sore throat POCT COVID-19 AG WELDON ID NOW Routine 09/22/2024 9:22 AM EDT Sore throat POCT INFLUENZA A (ID NOW RAPID MOLECULAR) Routine 09/22/2024 9:22 AM EDT Sore throat POCT INFLUENZA B (ID NOW RAPID MOLECULAR) Routine 09/22/2024 9:22 AM EDT Sore throat LIPID PANEL WITH REFLEX TO DIRECT LDL Routine 02/01/2024 3:28 PM EST Type 2 diabetes mellitus without complication, without long-term current use of insulin (CMS/HCC) ALBUMIN, RANDOM URINE W/CREATININE Routine 02/01/2024 3:11 PM EST Type 2 diabetes mellitus without complication, without long-term current use of insulin (CMS/HCC) POCT GLYCATED HEMOGLOBIN, TOTAL Routine 11/09/2023 9:52 AM EDT Type 2 diabetes mellitus without complication, without long-term current use of insulin (CMS/HCC) HEPATITIS C AB W/REFL TO HCV RNA, QN, PCR Routine 09/22/2023 9:57 AM EDT Diarrhea of infectious origin HIV 1/2 ANTIGEN/ANTIBODY, FOURTH GENERATION W/RFL Routine 09/22/2023 9:57 AM EDT Diarrhea of infectious origin BITEWING - SINGLE RADIOGRAPHIC IMAGE Routine 07/16/2022 2:00 PM EDT Defective dental jain from Last 3 Months or Most Recently Relevant to Health Maintenance Results * CT Chest w/ Contrast (10/25/2024 4:21 AM EDT) Anatomical Region Laterality Modality Body, Chest Computed Tomogra phy 10/25/2024 4:21 AM EDT Narrative 10/25/2024 4:23 AM EDT [address] [address] [address] Scan Report Signed Patient: Hilario Huntley MR#: [id number] : 1990 Acct:[id number] Age/Sex: 34 / M ADM Date: 10/25/24 Loc: HO.ED Attending Dr: Ordering Physician: Mary Dial Date of Service: 10/25/24 Procedure(s): CT chest w IV con Accession Number(s): [id number] cc: Mary Dial; Iram Kern MD Report Number: [id number]: Total DLP = 412.00 mGy-cm CLINICAL HISTORY: PNA?bronchitis? CT Chest W Contrast COMPARISON: CR - XR CHEST 1V - 10/24/24 22:36 EDT FINDINGS: No pulmonary consolidation or mass. No pleural effusion. No pneumothorax. No cardiomegaly. No pericardial effusion. No pathologically enlarged lymph nodes. No thoracic aortic aneurysm. No acute fracture. Diffusely hypodense liver consistent with hepatic steatosis. IMPRESSION: No acute findings. This document has been electronically signed by: Eduardo Blanco MD on 10/25/2024 04:21:52 Dictated By: Eduardo Blanco MD Signed By: <Electronically signed by Eduardo Blanco MD in OV> 10/25/24422 DD/ 0 TD/TT: 10/25/24420 Rivet Sorter: Procedure Note Donotuseinterpreter, Image - 10/25/[address] [place] [address] [address] Scan Report Signed Patient: Hilario HuntleyMR#: [id number] : 1990Acct:[id number] Age/Sex: 34 / MADM Date: 10/25/24 Loc: .ED Attending Dr: Ordering Physician: Mary Dial Date of Service: 10/25/24 Procedure(s): CT chest w IV con Accession Number(s): [id number] cc: Mary Dial; Iram Kren MD Report Number: [id number]: Total DLP = 412.00 mGy-cm CLINICAL HISTORY: PNA?bronchitis? CT Chest W Contrast COMPARISON: CR - XR CHEST V - 10/24/24 22:36 EDT FINDINGS: No pulmonary consolidation or mass. No pleural effusion. No pneumothorax. No cardiomegaly. No pericardial effusion. No pathologically enlarged lymph nodes. No thoracic aortic aneurysm. No acute fracture. Diffusely hypodense liver consistent with hepatic steatosis. IMPRESSION: No acute findings. This document has been electronically signed by: Eduardo Blanco MD on 10/25/2024 04:21:52 Dictated By: Eduardo Blanco MD Signed By: <Electronically signed by Eduardo Blanco MD in OV> 10/25/24422 DD/ 0 TD/TT: 10/25/24420 Rivet Sorter: [facility] External Provider IMG CT PROCEDURES Final Result * XR Chest 1 View (10/24/2024 11:12 PM EDT) Anatomical Region Laterality Modality Chest Radiographic Maegan ging 10/24/2024 11:1 2 PM EDT Narrative 10/24/2024 11:13 PM EDT [place] [address] XRay Report Signed Patient: Hilario Huntley MR#: [id number] : 1990 Acct:[id number] Age/Sex: 34 / M ADM Date: 10/24/24 Loc: .ED Attending Dr: Ordering Physician: Generic ED Physician Date of Service: 10/24/24 Procedure(s): XR chest 1V Accession Number(s): [id number] cc: Generic ED Physician; Iram Kern MD CLINICAL HISTORY: SOB 1 view chest x-ray Comparison: Chest x-ray from 10/21/2024 Findings: Low lung volumes with minimal atelectasis. No lobar consolidation. No pneumothorax or pleural effusion. Imaged mediastinum and imaged osseous structures appear unchanged by one view chest x-ray. IMPRESSION: Mild atelectasis without consolidation. This document has been electronically signed by: Jayesh Lozada MD on 10/24/2024 23:12:07 Dictated By: Jayesh Lozada MD Signed By: <Electronically signed by Jayesh Lozada MD in OV> 10/24/242311 DD/ 11 TD/TT: 10/24/242311 Rivet Sorter: Procedure Note Donotuseinterpreter, Image - 10/24/2024 [place] [id number] [place] [address] XRay Report Signed Patient: Hilario HuntleyMR#: [id number] : 1990Acct:[id number] Age/Sex: 34 / MADM Date: 10/24/24 Loc: HO.ED Attending Dr: Ordering Physician: Generic ED Physician Date of Service: 10/24/24 Procedure(s): XR chest 1V Accession Number(s): [id number] cc: Generic ED Physician; Iram Kern MD CLINICAL HISTORY: SOB 1 view chest x-ray Comparison: Chest x-ray from 10/21/2024 Findings: Low lung volumes with minimal atelectasis. No lobar consolidation. No pneumothorax or pleural effusion. Imaged mediastinum and imaged osseous structures appear unchanged by one view chest x-ray. IMPRESSION: Mild atelectasis without consolidation. This document has been electronically signed by: Jayesh Lozada MD on 10/24/2024 23:12:07 Dictated By: Jayesh Lozada MD Signed By: <Electronically signed by Jayesh Lozada MD in OV> 10/24/242311 DD/ 11 TD/TT: 10/24/242311 Rivet Sorter: [facility] External Provider IMG XR PROCEDURES Edited Result - Final * SARS-CoV-2 RNA, Influenza A/B, and RSV RNA, Ql NAAT (10/24/2024 10:20 PM EDT) Only the most recent of2 resultswithin the time period is included. Influenza A PCR NEGATIVE Negative [facility] Influenza B PCR NEGATIVE Negative [facility] Resp Syncy Virus RNA Qual PCR NEGATIVE Negative [facility] SARS COV2 PCR NEGATIVE Negative [facility] Comment:All test results mus t be correlated with clinical findings.Negative results do not preclude SARS-CoV2, influenza Avirus, influenza B virus and/or RSV infectionand should not be used as the sole basis for treatment orother patient management decisions. Negative results must becombined with clinical observations, patient history, andepidemiological information.This test has not been evaluated for monitoring treatment ofinfection.This test has been authorized by the FDA under an EmergencyUse Authorization (EUA) for use by authorized laboratories.Testing performed on the [employer] GeneXpert utilizingreal-time RT-PCR.All SARS CoV2 and positive influenza A/B results arereported to [facility]. 10/24/2024 10:2 0 PM EDT 10/24/2024 10:23 PM EDT us Generic External Data Provider LAB MICROBIOLOGY - GENERAL ORDERABLES Final Result [facility] [address] [place] [phone] * (ABNORMAL) CBC auto differential (10/24/2024 10:20 PM EDT) White Blood Count 8.7 4.8 - 10.8 X10*3/uL [facility] Red Blood Count 5.03 4.60 - 5.80 X10*6/uL [facility] Hemoglobin 14.6 14.0 - 18.0 g/dl [facility] Hematocrit 41.5(L) 42.0 - 52.0 % [facility] Mean Corpuscular Volume 82.5 80.0 - 98.0 fL [facility] Mean Corpuscular Hemoglobin 29.0 27.0 - 33.0 pg [facility] Mean Corpuscular HGB Conc 35.2 31.0 - 36.0 g/dl [facility] Red Cell Distribution Width 13.3 11.0 - 16.0 % [facility] Platelet Count 313 160 - 400 X10*3/uL [facility] Mean Platelet Volume 9.9 9.4 - 12.4 fL [facility] Neutrophils Percent Auto 62.9 45 - 73 % [facility] Imm Gran Pct Auto 0.3 0.0 - 0.4 % [facility] Lymphocytes Percent Auto 26.4 20 - 40 % [facility] Monocytes Percent Auto 8.4 2 - 11 % [facility] Eosinophils Percent Auto 1.5 0 - 4 % [facility] Basophils Percent Auto 0.5 0 - 2 % [facility] NRBC Pct Auto 0.0 0.0 - 0.2 /100WBC [facility] Neutrophils Absolute Auto 5.5 2.0 - 8.3 x10*3/uL [facility] Imm Gran Abs Auto 0.03 0.00 - 0.03 X10*3/uL [facility] Lymphocytes Absolute Auto 2.3 1.2 - 4.9 X10*3/uL [facility] Monocytes Absolute Auto 0.7 0.1 - 1.2 X10*3/uL [facility] Eosinophils Absolute Auto 0.1 0.0 - 0.4 X10*3/uL [facility] Basophils Absolute Auto 0.0 0.0 - 0.2 X10*3/uL [facility] NRBC Abs Auto 0.000 0.0 - 0.012 X10*3/uL [facility] 10/24/2024 10:2 0 PM EDT 10/24/2024 10:23 PM EDT us Generic External Data Provider LAB BLOOD ORDERAB LES Final Result [facility] [address], [place] [phone] * (ABNORMAL) Comprehensive Metabolic Panel (10/24/2024 10:20 PM EDT) Sodium 138 135 - 145 mmol/L [facility] Potassium 3.8 3.3 - 5.1 mmol/L [facility] Chloride 102 96 - 108 mmol/L [facility] Carbon Dioxide 26 22 - 29 mmol/L [facility] Anion Gap 14 12 - 20 [facility] Urea Nitrogen (BUN) 15 9 - 16 mg/dL [facility] Creatinine, Serum 1.01 0.5 - 1.4 mg/dL [facility] Creatinine Clr Calc Pharmacy 129.4 [facility] Comment:eGFR (calculated fro m the MDRD study equation) and eCrCl(calculated from the Cockcroft-Gault equation) are based ondifferent parameters and may not yield comparable results.If eCrCl result is absurd, please check patient'sheight/weight. Estimated Glomerular Filt Rate >60 [facility] Comment:Chronic Kidney Disea se: Estimated GFR < 60 mL/min/1.92b7Mhtmna Kidney Disease: Estimated GFR < 15 mL/min/1.73m2 Glucose 196(H) 60 - 115 mg/dL [facility] Calcium 9.2 8.4 - 10.2 mg/dL [facility] Bilirubin, Total 0.4 0.0 - 1.0 mg/dL [facility] Aspartate Amino Transferase 22 5 - 37 U/L [facility] Alanine Aminotransferase 39 0 - 40 U/L [facility] Total Protein 7.4 6.5 - 8.0 g/dL [facility] Albumin Level 4.4 3.5 - 5.0 g/dL [facility] Alkaline Phosphatase 88 39 - 117 U/L [facility] 10/24/2024 10:2 0 PM EDT 10/24/2024 10:23 PM EDT us Generic External Data Provider LAB BLOOD ORDERAB LES Final Result [facility] [address] [place] [phone] * Strep A Nucleic Acid (10/21/2024 9:24 AM EDT) IDNOW SERIAL# [id number] [facility] Strep A Nucleic Acid Negative Negative [facility] Comment:All test results mus t be correlated with clinical findings.This test has not been evaluated for monitoring treatment ofinfection.Additional follow-up testing using the culture method isrequired if the result is negative and clinical symptomspersist, or in the event of an acute rheumatic feveroutbreak. 10/21/2024 9:24 AM EDT 10/21/2024 9:24 AM EDT us Generic External Data Provider LAB MICROBIOLOGY - GENERAL ORDERABLES Final Result [facility] [address] [place] [phone] * XR Chest 2 Views (10/21/2024 9:10 AM EDT) Anatomical Region Laterality Modality Chest Radiographic Maegan ging 10/21/2024 9:10 AM EDT Narrative 10/21/2024 9:11 AM EDT [place] [address] XRay Report Signed Patient: Hilario Huntley MR#: [id number] : 1990 Acct:[id number] Age/Sex: 34 / M ADM Date: 10/21/24 Loc: HO.ED Attending Dr: Ordering Physician: Gail Schmidt Date of Service: 10/21/24 Procedure(s): XR chest 2V Accession Number(s): [id number] cc: Gail Schmidt; Iram Kern MD CLINICAL HISTORY: cough 2 view chest x-ray Comparison: CR/SR - XR CHEST 2 VIEWS - 12/30/23 09:17 EDT Findings: No consolidation or effusion. Heart size is normal. No acute fracture. IMPRESSION: 1. No acute findings. This document has been electronically signed by: Laurent Bradshaw MD on 10/21/2024 09:10:08 Dictated By: Laurent Bradshaw MD Signed By: <Electronically signed by Laurent Bradshaw MD in OV> 10/21/24910 DD/ 9 TD/TT: 10/21/24909 Rivet Sorter: Procedure Note Donotuseinterpreter, Image - 10/21/[address] [address] XRay Report Signed Patient: Hilario HuntleyMR#: [id number] : 1990Acct:[id number] Age/Sex: 34 / MADM Date: 10/21/24 Loc: HO.ED Attending Dr: Ordering Physician: Gail Schmidt Date of Service: 10/21/24 Procedure(s): XR chest 2V Accession Number(s): [id number] cc: Gail Schmidt; Iram Kern MD CLINICAL HISTORY: cough 2 view chest x-ray Comparison: CR/SR - XR CHEST 2 VIEWS - 12/30/23 09:17 EDT Findings: No consolidation or effusion. Heart size is normal. No acute fracture. IMPRESSION: 1. No acute findings. This document has been electronically signed by: Laurent Bradshaw MD on 10/21/2024 09:10:08 Dictated By: Laurent Bradshaw MD Signed By: <Electronically signed by Laurent Bradshaw MD in OV> 10/21/24910 DD/ 9 TD/TT: 10/21/24909 Rivet Sorter: [facility] External Provider IMG XR PROCEDURES Final Result * Influenza B (ID NOW Rapid Molecular) (09/22/2024 9:22 AM EDT) [facility] Influenza B Negative Negative, Indeterminate [facility] Swab 09/22/2024 9:22 AM EDT Amina Keenan DO POINT OF CARE TEST ENTER/KADE T ORDERABLES Final Result [facility] [address] [place] [phone] * Influenza A (ID NOW Rapid Molecular) (09/22/2024 9:22 AM EDT) [facility] Influenza A Negative Negative, Indeterminate [facility] Swab 09/22/2024 9:22 AM EDT Amina Keenan DO POINT OF CARE TEST ENTER/KADE T ORDERABLES Final Result [facility] [address], [place] [phone] * POCT COVID-19 Ag [place] ID NOW (09/22/2024 9:22 AM EDT) [facility] Coronavirus Antigen PCR Negative Negative, Indeterminate, None Detected, Invalid, Specimen unsatisfactory for evaluation, Weakly Positive, 2+ Swab 09/22/2024 9:22 AM EDT Amina Keenan DO POINT OF CARE TEST ENTER/KADE T ORDERABLES Final Result * POCT rapid strep A manually resulted (09/22/2024 9:22 AM EDT) [facility] Rapid Strep A Screen Negative Negative, None Detected Swab 09/22/2024 9:2 2 AM EDT Amina Keenan DO POINT OF CARE TEST ENTER/KADE T ORDERABLES Final Result * (ABNORMAL) Lipid Panel with Reflex to Direct LDL (02/01/2024 3:28 PM EST) [facility] Triglycerides 153(H) <150 mg/dL [facility] Comment:Desirable Triglyceri de: less than 150 mg/dLBorderline High Triglyceride 150-199 mg/dLHigh Triglyceride: 200-499 mg/dLVery High Triglyceride: greater than or equal to 5OO mg/dL Cholesterol 192 <200 mg/dL [facility] Comment:Desirable Cholestero l: less than 200 mg/dLBorderline High Cholesterol: 200-239 mg/dLHigh Cholesterol: greater than 239 mg/dL LDL Cholesterol Calculated 127(H) <100 mg/dL [facility] Comment:Desirable LDL: less than 100 mg/dLNear Optimal/Above Optimal LDL: 110- 129 mg/dLBorderline High LDL: 130-159 mg/dLHigh LDL: 160-189 mg/dLVery High LDL: greater than or equal to 190 mg/dL HDL Cholesterol 35(L) >40 mg/dL [facility] Comment:Desirable HDL: great er than 40 mg/dL Note: This HDL assay may give artificially low results in patients with liver disease. Blood 02/01/2024 3:28 PM EST 02/01/2024 3:28 PM EST Iram Kern MD LAB BLOOD ORDERABLES Final Resul t Performing Organization Address [facility] de Phone Number [facility] [address] [place] [phone] * Albumin, Random Urine W/Creatinine (02/01/2024 3:11 PM EST) Pathologist [facility] Creatinine, Urine 99.36 mg/dL [facility] Microalbumin Urine <5.0 mg/L [facility] Microalbum Creatinine Ratio Ur TNP <30 ug/mg cr [facility] Comment:Unable to calculate albumin/creatinine ratio due to lowmicroalbumin or creatinine result. Urine 02/01/2024 3:11 PM EST 02/01/2024 3:47 PM EST Iram Kern MD LAB URINE ORDERABLES Final Resul t Performing Organization Address [facility] Phone Number [facility] [address] [place] [phone] * (ABNORMAL) POCT HGB A1C (11/09/2023 9:52 AM EDT) Pathologist [facility] Hemoglobin A1C 6.1(A) 4.0 - 6.0 % QC Media Lot # [id number] Lot# Expiration Date ,[id number] Blood 11/09/2023 9:52 AM EDT us Iram Kern MD POINT OF CARE TEST ENTER/EDIT OR DERABLES Final Result * Hepatitis C Antibody with Reflex to HCV, RNA, Quantitative, Real-Time PCR (09/22/2023 9:57 AM EDT) Hepatitis C Antibody Nonreactive Nonreactive [facility] Comment:Antibodies to HCV no t detected; does not exclude early acuteHCV infection. Blood Venous blood specimen / Unknown 09/22/2023 9:57 AM EDT 09/22/2023 11:12 AM EDT Ananya Nieves MD LAB BLOOD ORDERAB LES Final Result Performing Organization Address [facility]/ZIP Co de Phone Number [facility] [address] [place] [phone] * HIV-1/2 Antigen and Antibodies, Fourth Generation, with Reflexes (09/22/2023 9:57 AM EDT) Pathologist [facility] HIV AB/AG Nonreactive Nonreactive [facility] Comment:HIV-1 p24 Ag and/or HIV-1/HIV-2 Ab not detected.A test result that is nonreactive does not exclude thepossibility of exposure to or infection with HIV-1 and/orHIV-2. Nonreactive results in this assay for individualswith prior exposure to HIV-1 and/or HIV-2 may be due toantigen and antibody levels that are below the limit ofdetection of this assay.[employer] HIV Ag/Ab Combo assay result andsupplemental assay results should be interpreted inconjunction with the patient's clinical presentation,history and other laboratory results. If the results areinconsistent with clinical evidence, additional testing issuggested to confirm the result. Blood Venous blood specimen / Unknown 09/22/2023 9:57 AM EDT 09/22/2023 11:12 AM EDT us Ananya Nieves MD LAB BLOOD ORDERAB LES Final Result Performing Organization Address [facility]/ZIP Co de Phone Number [facility] [address] [place] [phone] from Last 3 Months or Most Recently Relevant to Health Maintenance Insurance [facility] STANDARD HSN PARTIAL DENTAL-[facility] MEDICAID STAND ADULT Care Teams Nurse Researcher Relationship Specialty Start Date End Date Iram Kern MD [address] [place] [phone] PCP - General Family Medicine 08/06/23
--- OUTSIDE RECORDS SUMMARY | 2024-12-01 21:01 | XMS_ITS | Encounter Summary ---
Author Organization [employer] Address [address] [place] [address] 7 [place] [address] Care Team Providers Care Engineering Aide Name Role Phone Nemesio Chamorro MD Primary Care Provider Elie Corona MD Primary Care Provider [phone] Cindy Lopes Primary Care Provider [phone] Iram Kern MD Primary Care Provider [phone] Encounter Details Date Type Department Care Team (Latest Contact Info) Description 02/27/2021 Abstract [facility] CONVERSIONS Dental, Provider, DDS Social History Tobacco Use Types Packs/Day Years Used Date Smoking Tobacco: Never Assessed Sex and Gender Information Value Date Recorded Sex Assigned at Male 01/05/2022 10:36 AM EDT Legal Sex Male 10:36 AM EDT Gender Identity Male 01/05/2022 10:36 AM EDT Sexual Orientation Choose not to disclose 2021 10:36 AM EDT documented as of this encounter Plan of Treatment Not on file documented as of this encounter Visit Diagnoses Not on filedocumented in this encounter Care Teams Engineering Aide Relationship Specialty Start Date End Date Nemesio Chamorro MD PCP - General Family Medicine 12/30/18 02/01/22 Elie Robbins MD PCP - General Pediatrics 02/02/22 05/07/22 Cindy Lopes FNP [address] [place] [address] [phone] PCP - General Family Medicine 05/08/22 08/05/23 Iram Kern MD [address] [place] [address] PCP - General Family Medicine 08/06/23 documented as of this encounter
--- OUTSIDE RECORDS SUMMARY | 2024-12-01 21:01 | XMS_ITS | Clinical Summary ---
Author Organization [employer] Address [address] [place] [phone] Care Team Providers Care Bond Trader Name Role Phone Unavailable Primary Care Provider [...] Health Maintenance Due Date Last Done Comments Annual Physical Exam 2010 Tdap and Td Vaccines Adult 2011 COVID-19 Vaccine (2023-2 5 season) 2024 Influenza Vaccine (#1) 2024 02/20/2014 HIB Vaccines [...]
--- OUTSIDE RECORDS SUMMARY | 2024-12-01 21:01 | XMS_ITS | Encounter Summary ---
Author Organization [employer] Address [address] [place] [address] [address] [place] [address] Care Team Providers Care Talent Program Manager Name Role Phone Nemesio Chamorro MD Primary Care Provider Elie Corona MD Primary Care Provider [phone] Cindy Lopes Primary Care Provider [phone] Iram Kern MD Primary Care Provider Encounter Details Date Type Department Care Team (Latest Contact Info) Description 01/10/2019 Abstract [facility] CONVERSIONS Dental, Provider, DDS Social [...] on filedocumented in this encounter Care Teams Talent Program Manager Relationship Specialty Start Date End Date Nemesio Chamorro MD PCP - General Family Medicine 12/30/18 02/01/22 Elie Robbins MD PCP - General Pediatrics 02/02/22 05/07/22 Cindy Lopes FNP [address] [place] [phone] PCP - General Family Medicine 05/08/22 08/05/23 Iram Kern MD [address] [place] [phone] PCP - General Family Medicine 08/06/23 documented as of this encounter
--- OUTSIDE RECORDS SUMMARY | 2024-12-01 21:01 | XMS_ITS | Encounter Summary ---
Author Organization [id number] Address [address] [place] [address] Care Team Providers Care Supervisor [employer] Name Role Phone Iram Kern MD Primary Care Provider [phone] Reason for Visit * Reason Onset Date Comments Nurse Triage 09/21/2023 Encounter Details Date Type Department Care Team ([facility] st Contact Info) Description 09/21/2023 Telephone [facility] [address], [place] [id number] Iram Kern MD [address], [place] [id number] Nurse Triage Social History Tobacco Use Types Packs/Day Years Used Date Smoking Tobacco: Never Passive Smoke Exposure: Never Smokeless Tobacco: Never Alcohol Use Standard Drinks/Week Comments Not Currently 0 (1 standard drink = 0.6 oz pur e alcohol) Depression Answer Date Recorded Patient Health Questionnaire-9 Score 4 09/21/2023 Patient Health Questionnaire-9 Score 4 09/21/2023 Last PHQ-9: Questionnaire Data Not on file 0 09/21/2023 Housing Stability Answer Date Recorded What is [...] Answer Date Recorded Patient Health Questionnaire-2 Score 0 09/21/2023 Sex and Gender Information Value Date Recorded Sex Assigned at Male 01/05/2022 10:36 AM EDT Legal Sex Male 10:36 AM EDT Gender Identity Male 01/05/2022 10:36 AM EDT Sexual Orientation Choose not to disclose 2021 10:36 AM EDT documented as of this encounter Functional Status * Over the past 2 weeks, how often have you been bothered by any of the following problems? Question Answer Date of Assessment Author Patient Health Questionnaire -2 Score 0 09/21/2023 11:01 AM EDT Gianna Box MA * Over the last 2 weeks, how often have you been bothered by any of the following problems? Question Answer Date of Assessment Author Feeling nervous, anxious, or on edge 1 09/21/2023 11:03 AM JUDIT Gianna Box MA Not being able to stop or co ntrol worrying 1 09/21/2023 11:03 AM JUDIT Gianna Box MA Worrying too much about diff erent things 1 09/21/2023 11:03 AM Gianna Toro MA Trouble relaxing 1 09/21/2023 11:03 AM JUDIT Gianna Box MA Being so restless that it is hard to sit still 1 09/21/2023 11:03 AM Gianna Toro MA Becoming easily annoyed or irritable 1 09/21/2023 11:03 AM JUDIT Gianna Box MA Feeling afraid as if somethi ng awful might happen 0 09/21/2023 11:03 AM Gianna Toro MA TRACIE-7 Total Score 6 09/21/2023 11:03 AM Gianna Toro MA * Over the past 2 weeks, how often have you been bothered by any of the following problems? Question Answer Date of Assessment Author Little interest or pleasure in doing things Not at all 09/21/2023 11:01 AM Gianna Toro MA Feeling down, depressed, or hopeless Not at all 09/21/2023 11:01 AM Gianna Toro MA Trouble falling or staying asleep, or sleeping too much More than half the days 09/21/2023 11:01 AM Gianna Toro MA Feeling tired or having little energy Not at all 09/21/2023 11:01 AM Gianna Toro MA Poor appetite or overeating Not at all 09/21/2023 11:01 AM Gianna Toro MA Feeling bad about yourself - or that you are a failure or have let yourself or your family down Several days 09/21/2023 11:01 AM Gianna Toro MA Trouble concentrating on things, such as reading the newspaper or watching television Several days 09/21/2023 11:01 AM Gianna Toro MA Moving or speaking so slowly that other people could have noticed? Or the opposite - being so fidgety or restless that you have been moving around a lot more than usual. Not at all 09/21/2023 11:01 AM Gianna Toro MA Thoughts that you would be better off or hurting yourself in some way Not at all 09/21/2023 11:01 AM Gianna Toro MA Patient Health Questionnaire-9 Score 4 09/21/2023 11:01 AM Gianna Toro MA documented as of this encounter Miscellaneous Notes * Telephone Encounter - Angi Lambert RN - 09/21/2023 9:15 AM EDT Triage call Pt reports seen in [facility] 09/17/23 , pos. for Covid and strep throat. Pt was started on paxlovid and continues to take this medication. Pt reports feeling very tired, sleepy. 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 Pt is asking for an extended excuse fortaking time off for work. Pt did have letter of excuse extending to 09/21/23 but, asks for extension. Pt is given TSK apt with Dr. Ruiz who saw Pt in [facility], @ 1115am today. Insurance is verified as active prior to booking. Pt agrees with disposition and is advised may need to be seen in person with [facility] open till 8pm this evening. Pt agrees. Protocol Used: Information Only Call - No Triage (Adult) Protocol-Based Disposition: Callback or Video Visit by PCP Today Video visit offered and caller accepted Positive Triage Question: * Nursing judgment * All higher-acuity triage questions were negative Care Advice Discussed: * Reasons To Call Back - New symptoms develop - You have more questions - You become worse * Telephone Encounter - Kamar Waldron - 09/21/2023 8:51 AM EDT Symptom: COVID-19 Suspected Outcome: Schedule a same-day appointment or talk to a nurse or provider today Reason: Caller denied all higher acuity questions documented in this encounter Plan of Treatment Not on file documented as of this encounter Visit Diagnoses Not on filedocumented in this encounter Additional Health Concerns Assessment Noted Time PHQ-9 Depression Total Score: 4 09/21/19 24 11:01 AM EDT documented as of this encounter Care Teams Supervisor [employer] Relationship Specialty Start Date End Date Iram Kern MD [address] [place] [id number] PCP - General Family Medicine 08/06/23 documented as of this encounter
== END ==
LOC: HO.SL 20:30
PROVIDERS: PCP Family Medicine; Visit Provider Internal Medicine
DX: R06.83 Snoring (principal); G47.33 Obstructive sleep apnea (adult) (pediatric); G47.36 Sleep related hypoventilation in conditions classified elsewhere
CPT/HCPCS: 95811